=== PATIENT | male | born 1945 | race Caucasian/White ===

== ENCOUNTER 2017-10-23 07:38 | Inpatient (IN) | payer OTHER, MEDICARE ==
[~2017-10-23] VITALS: Ht 180.3 cm; Wt 83.5 kg
[2017-10-23] MEDS ORDERED: IOHEXOL 350 MG/ML 50 ML BTL (for Cath Lab) OTHER ONE (07:39)
[2017-10-23 08:22] LABS: BASOPHIL % 0.4 % (0.0-2.0); EOSINOPHIL # 0.2 TH/MM3 (0-0.4); EOSINOPHIL % 4.3 % (0.0-4.0); HEMATOCRIT 42.9 % (39.0-51.0); HEMOGLOBIN 14.6 GM/DL (13.0-17.0); LYMPH % 23.7 % (9.0-44.0); LYMPHOCYTE # 1.1 TH/MM3 (1.0-4.8); MEAN CELL VOLUME 96.9 FL (80.0-100.0); MEAN CORPUSCULAR HEMOGLOBIN 33.1 PG (27.0-34.0); MEAN CORPUSCULAR HGB CONC 34.1 % (32.0-36.0); MEAN PLATELET VOLUME 8.7 FL (7.0-11.0); MONO % 7.1 % (0.0-8.0); MONOCYTE # 0.3 TH/MM3 (0-0.9); NEUT % 64.5 % (16.0-70.0); PLATELET COUNT 164 TH/MM3 (150-450); RED BLOOD COUNT 4.43 MIL/MM3 (4.50-5.90); RED CELL DISTRIBUTION WIDTH 13.7 % (11.6-17.2); WHITE BLOOD COUNT 4.6 TH/MM3 (4.0-11.0)
[2017-10-23 08:25] VITALS: BP 129/79; PULSE 67; RESP 16; TEMP 97.8; O2SAT 97
[2017-10-23 08:29] LABS: INTERNATIONAL NORMALIZED RATIO 1.1 RATIO; PROTHROMBIN TIME - PATIENT 10.7 SEC (9.8-11.6)
[2017-10-23] MEDS ORDERED: ASPI81CH6 CHEW (08:33)
[2017-10-23] MEDS ORDERED: CLAR10CA3 PO (08:33)
[2017-10-23] MEDS ORDERED: ATOR40TA16 PO (08:33)
[2017-10-23] MEDS ORDERED: AMLO2.5T PO (08:33)
[2017-10-23] MEDS ORDERED: FLUT1SPR5 EACH NARE (08:33)
[2017-10-23] MEDS ORDERED: CENTCHW4 CHEW (08:33)
[2017-10-23 08:40] LABS: BICARBONATE 30.3 MEQ/L (21.0-32.0); CALCIUM 9.1 MG/DL (8.5-10.1); CREATININE 1.2 MG/DL (0.60-1.30)
[2017-10-23] MEDS ORDERED: MIDAZOLAM HCL 2 MG/2 ML VIAL ONE (11:03)
[2017-10-23] MEDS ORDERED: HEPARIN-NS/PF FLUSH BAG 2,000 ML IV FLUSH ONE (11:03)
[2017-10-23] MEDS ORDERED: VERAPAMIL HCL 5 MG/2 ML VIAL ONE (11:04)
[2017-10-23] MEDS ORDERED: HEPARIN SODIUM - IV 10,000 UNITS/10 ML VIAL ONE (11:04)
[2017-10-23] MEDS ORDERED: NITROGLYCERIN INJ 5 ML ONE (11:04)
--- NOTE | 2017-10-23 12:05 | CATHPROC ---
[employer] HIS Report Study Information Study Number Admission Scheduled Start Study Start [id number] Oct 23 2017 7:38AM 10/23/2017 Oct 23 2017 10:56AM [place] [facility] Cardiac Catheterization Admit Source Facility Department Other [facility] - Senior [employer] Designer Physician and Clinical Staff Initial Grey Faustin Director Of Graduate Admissions Piedad Montoya,MARCELLA Director Of Graduate Admissions Johan Contreras,MARCELLA Recorder Verena Crespo,RT(R) (BS) Recorder Brandy Subramanian ,RT(R) Scrub Chloe JohnsonRT(R) Procedures Performed Procedure Location (Site) Vessel Name Coronary Angiograms LCA Left Coronary Coronary Angiograms RCA Right Coronary L Heart Cath Equipment Time Screening Specialist Description Size Mfg Part Number Used/Scraped TRANSDUCER, TRUWAVE [id number] 11:08 MORA FISCHER * Used W/STOCKCOCK *[id number] [id number] *[id number] [id number] *[id number] 11:08 [employer] PACK, CCL CUSTOM * Used *[id number] 11:08 [employer] SUPPORT, ARTERIAL ADULT 16179 *[id number] Used BAND, RADIAL COMPRESSION TR [id number] 11:41 [employer] MEDICAL 24CM Used SHORT 24 *[id number] 11:08 [employer] WIRE, EXCHANGE 260CM 3MMJ 260CM Used *[id number] 11:08 NAMIC MANIFOLD, 4 PORT * Used *[id number] 11:08 [employer]ED OMNIPAQUE, 350 MG, 150ML 150ML [id number] Used [id number] 11:08 RYAN [employer] BLANKET,WARM AIR CCL * Used *[id number] SHEATH, FR6 TRANSRADIAL RM*[id number] 11:08 threadsy FR 6 Used SLENDER 10CM *[id number] History: Allergies Allergy Reaction tomato wheat environmental History: Risk Factors Family History of Hypertension Dyslipidemia Previous NM Previous Heart Failure Premature CAD No Yes No No No Prior Valve Prior PCI Prior CABG Surgery No No No Cerebrovascular Peripheral Artery Chronic Lung On Dialysis Diabetes Diabetes Therapy Disease Disease Disease No No No No Yes Diet History: Stress Tests Stress or Imaging Studies Performed Yes Standard Exercise Stress Stress Test Result Stress Test Ischemia Risk/Extent Test Yes Positive High Stress Echo No Stress Test SPECT No Stress Test CMR No Cardiac CTA Coronary Calcium Score No No History: Other Current Smoker Method No Cigarettes Labs Hgb (g/dl) Hct (%) WBC (l/cumm) Platelets (thousands) 11.60-17.00 35.00-51.00 4.00-11.00 150.00-450.00 14.6 42.9 4.6 164 Glucose (mg/dl) BUN (mg/dl) Creatinine (mg/dl) BUN:Creatinine (1:x) 74.00-106.00 7.00-18.00 0.50-1.30 10.00-20.00 95 17 1.2 14.2 Na (meq/l) K (meq/l) 136.00-145.00 3.50-5.10 141 4.1 INR (PTT:PT) 0.90-1.10 1.1 CPK-MB (ng/ML) 0.50-3.60 Not Drawn Medication Medication Total Dose (Bolus/Oral) Medication Total Dosage/Unit 1% XYLOCAINE 5 mL FENTANYL 25 mcg RADIAL COCKTAIL 5 mL (Bolus) VERSED 0.5 mg Medications (Bolus/Oral) Medication Time Given Dosage/Unit Administered By Reason VERSED 10/23/2017 11:27:37 AM 0.5 mg Johan Contreras 0.5 mg VERSED given in lab by Johan Contreras RN in Left Antecubital via Peripheral IV. Ordered by Grey Davalos FENTANYL 10/23/2017 11:27:45 AM 25 mcg Johan Contreras 25 mcg FENTANYL given in lab by Johan Contreras RN in Left Antecubital via Peripheral IV. Ordered by Grey Gray 1% XYLOCAINE 10/23/2017 11:28:29 AM 5 mL Grey Gray 5 mL 1% XYLOCAINE given in lab by Grey Gray in Right Radial via Subcutaneous. Ordered by Grey Davalos Ntg 200mcg Verapamil 2.5mg Heparin RADIAL COCKTAIL 10/23/2017 11:30:14 AM 5 mL (Bolus) Grey Gray 3000U 5 mL (Bolus) RADIAL COCKTAIL given in lab by Grey Gray via Radial. Using [Solution Name]. O rdered by Grey Gray Reason: Ntg 200mcg Verapamil 2.5mg Heparin 3200U. Medication (Drip) Medication Time Given Dosage/Unit Concentration/Unit Diluent (ml) Solution IV Solutions 10/23/2017 10:57:01 AM 50 mL (IV) NaCl .9 Patient arrived on IV Solutions via Peripheral IV. Pump/Drip Flow using NaCl .9. Initial Case Assessment Cardiovascular HR Rhythm NIBP Chest Pain 75 sr 142/78 0 Edema Present Skin color Skin None Normal Warm Dry Circulatory - Right Pulses Dorsalis Pedis Femoral Radial 2 3 1 Scale (0,1,2,3,4,d) Circulatory - Left Pulses Dorsalis Pedis Femoral Radial 2 3 Scale (0,1,2,3,4,d) Circulatory - Lower Extremities Color Lower Right Color Lower Left Normal Normal Neurological State Oriented to time-place- Alert Moves all extremities person Respiration - General Respiration Rate SpO2 (%) (B/min) 8 100 Final Case Assessment Cardiovascular HR Rhythm NIBP Chest Pain 75 sr 142/78 0 Edema Present Skin color Skin None Normal Warm Dry Circulatory - Right Pulses Dorsalis Pedis Femoral Radial 2 3 1 Scale (0,1,2,3,4,d) Circulatory - Left Pulses Dorsalis Pedis Femoral Radial 2 3 Scale (0,1,2,3,4,d) Circulatory - Lower Extremities Color Lower Right Color Lower Left Normal Normal Neurological State Oriented to time-place- Alert Moves all extremities person Respiration - General Respiration Rate SpO2 (%) (B/min) 8 100 Chronological Log Time Study Chronological Log 10:56:35 Patient arrived via Bed. 10:56:36 Patient Name, D.O.B, / Armband Verified By R.N. 10:56:38 Consent signed by the physician and the patient and verified by the Senior [employer]i [employer] Designer staff. 10:56:39 Pre-op and post- op instructions given; patient acknowledges understanding of instructions. 10:56:40 Verbal Stimulation=2 Physical Stimulation=2 Airway=2 Respiration=2 TOTAL=8. (0=absent, 1=li mited, 2=present) 10:56:42 Presedation assessment performed by Senior Ui Ux Designer RN. 10:56:48 Allens test performed on the right radial and ulnar artery. 10:56:55 Patient has been NPO for More than 6Hrs. 10:56:57 Skin Breakdown none per pt 10:56:59 Patient Warmer Placed on the Table. 10:57:00 Ezio Prominences Protected 10:57:01 A # 20 IV was noted in the Antecubital (left). Grade = 0 10:57:01 Patient arrived on IV Solutions via Peripheral IV. Pump/Drip Flow using NaCl .9. 10:57:02 History and physical on the chart or being dictated. Assessment: Initial Case, HR=75 BPM, Rhythm=sr, SZYZ=562/78 mmhg, Chest Pain=0, Edema=None, Col or=Normal, Skin = Warm, Dry Right Pulses: Lucas Ped=2, Femoral=3, Radial=1 Left Pulses: Lucas Ped=2, Femoral=3 10:57:03 Lower Right Extremities: Color=Normal Lower Left Extremities: Color=Normal Neurological: State=Alert, Ox3, DURÁN Respiration: Resp=8 B/min, QwT8=722 % Vitals capture started with the following parameters, Patient=Adult, Interval=5 min, Initial Pr axjtzv=448 mmHg, 11:02:58 Deflation Rate=5 mmHg, Cuff placed on Unknown 11:03:32 HR=83 bpm, NWEP=588/78 mmhg, SpO2=99.0 %, Pain=0, Samantha=8, Steiner=2 11:08:37 HR=76 bpm, UWPV=158/78 mmhg, ArO0=333.0 %, Resp=17 B/min, Pain=0, Samantha=8, Steiner=2 11:09:20 Right Radial and right groin prepped with 2% chlorhexidine, and draped after a 3 min. waiti ng time. 11:10:56 Reference ECG taken 11:13:27 MD paged 11:14:03 HR=77 bpm, LNKT=507/81 mmhg, JnW6=140.0 %, Resp=12 B/min, Pain=0, Samantha=8, Steiner=2 11:14:32 Pressure channel 1 zeroed. 11:18:33 HR=77 bpm, SGBI=431/82 mmhg, OeQ3=387.0 %, Resp=9 B/min, Pain=0, Samantha=8, Steiner=2 11:23:24 MD arrived. 11:23:34 HR=79 bpm, AAIA=765/94 mmhg, PkR5=777.0 %, Resp=11 B/min, Pain=0, Samantha=8, Steiner=2 Time Out. Correct patient, correct procedure, correct physician, power injector not loaded with contrast with surgical 11::59 team present. Time Out Concurred by MD and individual staff in procedure. 11:27:23 Case Start 11::37 0.5 mg VERSED given in lab by Johan Contreras, RN in Left Antecubital via Peripheral IV. Ord ered by Grey Gray. 25 mcg FENTANYL given in lab by Johan Contreras, RN in Left Antecubital via Peripheral IV. Order ed by Grey Gray 11:27:45 G. 5 mL 1% XYLOCAINE given in lab by Grey Gray in Right Radial via Subcutaneous. Ordered by Isaac 11:29 Grey Garcia 11:28:31 HR=76 bpm, CTBX=836/78 mmhg, SpO2=99.0 %, Resp=11 B/min, Pain=0, Samantha=8, Steiner=2 11:29:20 Access site was right Radial Artery. A SHEATH, FR6 TRANSRADIAL SLENDER 10CM FR 6 was advanced into the Radial (right) using the Perc utaneous 11:29:49 technique. 5 mL (Bolus) RADIAL COCKTAIL given in lab by Grey Gray via Radial. Using [Solution Na me]. Ordered by 11:30:14 Grey Gray. Reason: Ntg 200mcg Verapamil 2.5mg Heparin 3200U. A JR 4.0 INFINITI CATHETER FR 5 was advanced over a wire. OMNIPAQUE, 350 MG, 150ML 150ML was us ed for 11:30:38 injections. Recorded Pressure: LV, HR=87, Condition=Condition 1 11:32:43 (Left Ventricle) LV 105/0/1 Recorded Pressure: LV, Ao, HR=85, Condition=Condition 1 11:32:50 (Left Ventricle) LV 104/-1/0, (Aorta) Ao 89/59/72 11:33:36 HR=83 bpm, NDHP=431/68 mmhg, SpO2=95.0 %, Resp=8 B/min, Pain=0, Samantha=8, Steiner=2 11:35:09 The RCA was injected and visualized at various angles. OMNIPAQUE, 350 MG, 150ML 150ML used . 11:36:39 Catheter was removed A JL 3.5 INFINITI CATHETER FR 5 was advanced over a wire. OMNIPAQUE, 350 MG, 150ML 150ML was us ed for 11:36:41 injections. 11:38:31 HR=84 bpm, RDIP=313/69 mmhg, SpO2=96.0 %, Resp=10 B/min, Pain=0, Samantha=8, Steiner=2 11:38:48 The LCA was injected and visualized at various angles. OMNIPAQUE, 350 MG, 150ML 150ML used . 11:39:29 Catheter was removed 11:43:34 HR=84 bpm, IQHG=453/65 mmhg, SpO2=98.0 %, Resp=11 B/min, Pain=0, Samantha=8, Steiner=2 11:46:49 Case End Assessment: Final Case, HR=75 BPM, Rhythm=sr, YMKF=233/78 mmhg, Chest Pain=0, Edema=None, [place] r=Normal, Skin = Warm, Dry Right Pulses: Lucas Ped=2, Femoral=3, Radial=1 Left Pulses: Lucas Ped=2, Femoral=3 11:47:04 Lower Right Extremities: Color=Normal Lower Left Extremities: Color=Normal Neurological: State=Alert, Ox3, DURÁN Respiration: Resp=8 B/min, ZbO2=456 % 11:47:20 Catheter(s) removed without difficulty Radial Compression Device Used. 11 mLs of air placed in BAND, RADIAL COMPRESSION TR SHORT 24 2 4CM. Affected 11:47:42 hand 100 % O2 saturation. 11:47:55 No case complications noted. 11:47:56 Cine recording checked. 11:47:59 Bedside Report will be given. 11:48:05 A Left Heart Cath was performed. 11:48:33 HR=80 bpm, PGWE=126/75 mmhg, Resp=13 B/min, Pain=0, Samantha=8, Steiner=2 11:53:16 Vitals capture stopped. 11:56:47 Patient moved to stretcher End Study - Contrast Media Used In Study Contrast Total Opened (mL) Total Used (mL) Total Wasted (mL) Omnipaque 50 50 0 End Study - Maximum Contrast Load Max Contrast Load (mL) 330.5 End Study - Radiation Exposure Fluoro Time (minutes) 2.8 End Study - Sheaths Sheaths Pulled By Sheath Hold Time (min) Chloe Johnson End Study - Patient Disposition Complications Transferred To Interventional Outcome No Senior [employer]i [employer] Designer Holding No attempt made
[2017-10-23] MEDS ORDERED: INSULIN REGULAR (IV INFUSION) 100 UNITS in SODIUM CHLORIDE 0.9% INJ 99 ML IV PRN (13:00)
[2017-10-23] MEDS ORDERED: SODIUM CHLORIDE 0.9% FLUSH 10 ML FLUSH IV FLUSH PRN (13:00)
[2017-10-23] MEDS ORDERED: METOPROLOL TARTRATE 25 MG TAB PO SCH (13:00)
[2017-10-23] MEDS ORDERED: CHLORHEXIDINE GLUCONATE 4% SOLN 120 ML BTL TOPICAL SCH (13:00)
[2017-10-23] MEDS ORDERED: PAPAVERINE INJ 60 MG, NITROGLYCERIN INJ 100 MCG, DILTIAZEM INJ 100 MG in SODIUM CHLORID... IRRIGATION SCH (13:00)
[2017-10-23] MEDS ORDERED: DEXTROSE 50% IN WATER 50 ML VIAL(D50) IV PUSH PRN (13:00)
[2017-10-23] MEDS ORDERED: CEFAZOLIN INJ 500 MG in SODIUM CHLORIDE 0.9% IRR BTL 500 ML IRRIGATION SCH (13:00)
[2017-10-23] MEDS ORDERED: ceFAZolin 2 GM PREMIX 50 ML IV SCH (13:30)
[2017-10-23] MEDS ORDERED: CEFAZOLIN INJ 2,000 MG in SODIUM CHLORIDE 0.9% INJ 100 ML IV SCH (13:45)
[2017-10-23] MEDS ORDERED: PILL SPLITTER OTHER PRN (13:45)
--- NOTE | 2017-10-23 14:39 | RADRPT ---
EXAM DATE/TIME: 10/23/2017 13:58 [facility] COMPARISON: No previous studies available for comparison. INDICATIONS : Preop cardiac surgery. MEDICAL HISTORY : Carcinoma, basal cell. Chronic kidney disease. Pre diabetes. Chest pain. SURGICAL HISTORY : Cardiac cath. ENCOUNTER: Initial ACUITY: 1 day PAIN SCORE: 0/10 LOCATION: Bilateral leg. GREATER SAPHENOUS VEIN THIGH: PROXIMAL: Right 7 mm Left 4 mm MID: Right 2 mm Left 4 mm DISTAL: Right 4 mm Left 4 mm CALF: PROXIMAL: Right 3 mm Left 4 mm MID: Right 2 mm Left 3 mm DISTAL: Right 3 mm Left 3 mm FINDINGS: The venous system of the lower extremities are patent by color Doppler imaging. Measurements of the leg veins (in mm) are listed above. CONCLUSION: Venous mapping study as described. Venkat Roberts MD on October 23, 2017 at 14:36 Board Certified Radiologist. This report was verified electronically.
--- NOTE | 2017-10-23 14:40 | RADRPT ---
EXAM DATE/TIME: 10/23/2017 13:52 [facility] COMPARISON: No previous studies available for comparison. INDICATIONS : Preop cardiac surgery. MEDICAL HISTORY : Carcinoma, basal cell. Chronic kidney disease. Pre diabetes. Chest pain. SURGICAL HISTORY : Cardiac cath. ENCOUNTER: Initial ACUITY: 1 day PAIN SCORE: 0/10 LOCATION: Bilateral leg. TECHNIQUE: Venous ultrasound of the left and right leg was performed from the inguinal ligament to the proximal calf. Real-time, color Doppler and spectral tracing, compression and augmentation techniques were us ed. FINDINGS: RIGHT LEG: There is normal compressibility of the deep venous system from the inguinal region to the proximal ca lf. No echogenic clot is seen in the lumen of the common femoral, femoral, popliteal, and posterior tibial veins. There is a normal response of the venous system to proximal and distal augmentation an d respiration. LEFT LEG: There is normal compressibility of the deep venous system from the inguinal region to the proximal ca lf. No echogenic clot is seen in the lumen of the common femoral, femoral, popliteal, and posterior tibial veins. There is a normal response of the venous system to proximal and distal augmentation an d respiration. CONCLUSION: Negative exam with no evidence of deep venous thrombosis. Venkat Roberts MD on October 23, 2017 at 14:37 Board Certified Radiologist. This report was verified electronically.
[2017-10-23 15:00] VITALS: BP 135/88; PULSE 69; PULSE 70; RESP 18; TEMP 98.6; O2SAT 97
--- NOTE | 2017-10-23 15:30 | RADRPT ---
EXAM DATE/TIME: 10/23/2017 13:15 [facility] COMPARISON: No previous studies available for comparison. INDICATIONS : Preop cardiac surgery. MEDICAL HISTORY : Carcinoma, basal cell. Chronic kidney disease. Pre diabetes. Chest pain. SURGICAL HISTORY : Cardiac cath. ENCOUNTER: Initial ACUITY: 1 day PAIN SCORE: 0/10 LOCATION: Bilateral neck PEAK SYSTOLIC VELOCITIES (cm/sec): ICA/CCA RATIO: Right: 0.7 Left: 0.7 ICA: Right: 91 Left: 93 CCA: Right: 135 Left: 127 ECA: Right: 108 Left: 120 VERTEBRAL: Right: 31 antegrade Left: 54 antegrade Elevated flow velocities and ICA/CCA ratios have been found to correlate with increased degrees of vessel stenosis, calculated as percentage of diameter relative to a normal segment of distal ICA/CCA FINDINGS: RIGHT CAROTID: No significant stenosis is visualized. The waveforms are within normal limits. LEFT CAROTID: No significant stenosis is visualized. The waveforms are within normal limits. VERTEBRAL ARTERIES: Antegrade flow is seen in both vertebral arteries. MISCELLANEOUS: None. CONCLUSION: 1. Normal exam. 2. No evidence of significant atherosclerotic vascular disease or hemodynamically significant stenosi s. 3. Antegrade flow both vertebral arteries. Cristobal Mckeon MD on October 23, 2017 at 15:26 Board Certified Radiologist. This report was verified electronically.
--- NOTE | 2017-10-23 15:43 | MB ---
cc: Tiffani Corbett MD DATE: 10/23/2017 HISTORY OF PRESENT ILLNESS: A 72-year-old male patient of Dr. Luke Augustine, Dr. Sandra Busby, who had been having some chest pain on and off for the last year and a half he recalled, but he described it to Dr. Busby as discomfort for the last couple of months, lasting a couple of hours. He said it was hard to describe, but he has been noticing that he has had some intolerance to walking up a flight of stairs. He walks up a flight of stairs 12 flights to get the mail and has to stop after the seventh to catch his breath, which is not normal to him. Denies having any nausea, vomiting, palpitations. No edema. He underwent elective exercise stress test; however, there was a [address] depression that was noted making him a high risk score. So he underwent elective cardiac catheterization today by Dr. Gray, which showed left main disease of 10%. The proximal LAD had 95%. The mid distal LAD 99%. The diagonal had 40%. The circumflex 20, the OM 60 and the RCA 20%. We were consulted to evaluate for coronary artery bypass grafting since the patient has significant LAD disease, the decision was to keep the patient in the hospital to be evaluated for surgery sooner than later. PAST MEDICAL HISTORY: Includes chronic kidney disease, stage II, history of kidney stones, colon polyps, prediabetes, hyperlipidemia. PAST SURGICAL HISTORY: Include basal cell carcinoma removed from his left ear and right ear. He has had some squamous cell cancer removed. He had a thymectomy in 1984, vasectomy, prostate biopsy, lithotripsy laminectomy, left knee arthroscopic surgery, colonoscopy. ALLERGIES: THE PATIENT HAS ALLERGIES TO ENVIRONMENTAL: TOMATO, WHEAT. HOME MEDICATIONS: Include: amlodipine 2.5 daily, atorvastatin 40, aspirin 81, Flonase, Claritin, multivitamin. FAMILY HISTORY: Mother at 96 from old age. Father from cancer at age 62. 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 Exercises normally on a regular basis, but unable to do so recently. No alcohol or ETOH. REVIEW OF SYSTEMS: GENERAL: No night sweats, fever, heat and cold intolerance. SKIN: No psoriasis, itching or hives. HEENT: No blurred vision, hearing loss. RESPIRATORY: No cough, shortness of breath. CARDIOVASCULAR: As above in the HPI. GASTROINTESTINAL: No diarrhea or vomiting. GENITOURINARY: No burning, frequency, urgency. CENTRAL NERVOUS SYSTEM: No history of TIA, CVA or seizure disorder. ENDOCRINOLOGY: No diabetes and/or hypothyroidism. PHYSICAL EXAMINATION: VITAL SIGNS: Blood pressure 130/70, heart rate is 68, afebrile, room air saturation 97 percent. GENERAL: Awake, alert, in no acute distress. HEENT: Head is normocephalic, atraumatic. Pupils equal and reactive. Oral mucosa pink, moist. NECK: Supple. No JVD. HEART: Sounds S1, S2. Regular rate and rhythm. No audible rubs, murmurs, or gallops. LUNGS: Clear to auscultation. No wheezes, rales or rhonchi. ABDOMEN: Soft, nontender. No masses or organomegaly. EXTREMITIES: No cyanosis, clubbing, or edema. LABORATORY DATA: Shows hemoglobin 14, hematocrit of 42. White cell count of 4.6, platelet count of 164. Sodium 141, potassium 4.1, BUN is 17, creatinine 1.20, glucose 95. INR 1.1. RADIOLOGICAL EXAMS: Still pending to include 2-D echo, CT chest secondary to his prior sternotomy, other lab work and leg vein mapping, carotid ultrasound. ASSESSMENT AND PLAN: The cardiac films will be evaluated by Dr. Tiffani Corbett. Procedures, alternatives and risks will be discussed with the patient. Plan would be for coronary artery bypass grafting from 2-3 and timing as per Dr. Corbett. STS data will be completed once we get his ejection fraction from the echocardiogram. Dictated by DAVE Mo MD TISHA Higgins/ОЛЕГ/mandy , 01:04 PM , 01:38 PM
[2017-10-23] MEDS: HEPARIN-D5W 25,000 U/250 ML 250 ML IV PRN (16:22)
--- NOTE | 2017-10-23 16:34 | HHI.HP ---
[facility] Luke Augustine MD Admission Diagnosis Diagnoses: Chief Complaint: Intermittent chest pain. Travel History International Travel<30 Days: No Contact w/Intl Traveler <30 Da: No History of Present Illness 72-year-old male who presented to the hospital for elective heart catheterization and was found to have multivessel disease. Patient reports over the past few months, he has been having intermittent, vague chest pain. He is normally very active and is normally able to climb one flight of stairs but noticed lately after 7 flight of stairs he gets really short of breath. 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 He came in for heart catheterization disease. It was recommended the patient be admitted to the cardiovascular surgery consult and intervention. Patient is seen in his room, currently denies chest pain or shortness of breath. Review of Systems Cardiovascular: COMPLAINS OF: Chest pain, Dyspnea on Exertion Gastrointestinal: DENIES: Nausea Except as stated in HPI: all other systems reviewed are Neg Past Family Social History Past Medical History Prediabetes History of Kidney stones Hyperlipidemia Past Surgical History Thymectomy in the 80s Lithotripsy Prostate biopsy Vasectomy Reported Medications Reported Meds & Active Scripts Active Reported Amlodipine (Amlodipine Besylate) 2.5 Mg Tab 2.5 Mg PO DAILY Atorvastatin (Atorvastatin Calcium) 40 Mg Tab 40 Mg PO HS Aspirin Low Dose (Aspirin) 81 Mg Chew 81 Mg CHEW DAILY Flonase Nasal [place] (Fluticasone Nasal [place]) 50 Mcg/Act [place] 50 Mcg EACH NARE BID Claritin (Loratadine) 10 Mg Cap 10 Mg PO DAILY Centrum (Multiple Vitamins W/ Minerals) 1 Chew 1 Tab CHEW DAILY Allergies: Coded Allergies: tomato (Verified Allergy, Unknown, 10/23/17) wheat (Verified Allergy, Unknown, 10/23/17) Uncoded Allergies: environmental (Allergy, Mild, 10/23/17) Family History Father from cancer Social History Lives with his . No history of tobacco, alcohol, or drug use. Physical Exam Vital Signs Vital Signs Date Time Temp Pulse Resp B/P (MAP) Pulse Ox O2 Delivery O2 Flow Rate FiO2 10/23/17 12:02 97 Room Air 10/23/17 08:25 97.8 67 16 129/79 96 97 Physical Exam GENERAL: This is a well-nourished, well-developed patient, in no apparent distress. SKIN: No rashes, ecchymoses or lesions. Cool and dry. HEAD: Atraumatic. Normocephalic. No temporal or scalp tenderness. EYES: Pupils equal round and reactive. Extraocular motions intact. No scleral icterus. No injection or drainage. ENT: Nose without bleeding, purulent drainage or septal hematoma. Throat without erythema, tonsillar hypertrophy or exudate. Uvula midline. Airway patent. NECK: Trachea midline. No JVD or lymphadenopathy. Supple, nontender, no meningeal signs. CARDIOVASCULAR: Regular rate and rhythm without murmurs, gallops, or rubs. RESPIRATORY: Clear to auscultation. Breath sounds equal bilaterally. No wheezes , rales, or rhonchi. GASTROINTESTINAL: Abdomen soft, non-tender, nondistended. No hepato-splenomegaly , or palpable masses. No guarding. MUSCULOSKELETAL: Extremities without clubbing, cyanosis, or edema. No joint tenderness, effusion, or edema noted. No calf tenderness. Negative Homans sign bilaterally. NEUROLOGICAL: Awake and alert. Cranial nerves II through XII intact. Motor and sensory grossly within normal limits. Five out of 5 muscle strength in all muscle groups. Normal speech. Laboratory Laboratory Tests Test 10/23/17 08:10 White Blood Count 4.6 Red Blood Count 4.43 Hemoglobin 14.6 Hematocrit 42.9 Mean Corpuscular Volume 96.9 Mean Corpuscular Hemoglobin 33.1 Mean Corpuscular Hemoglobin Concent 34.1 Red Cell Distribution Width 13.7 Platelet Count 164 Mean Platelet Volume 8.7 Neutrophils (%) (Auto) 64.5 Lymphocytes (%) (Auto) 23.7 Monocytes (%) (Auto) 7.1 Eosinophils (%) (Auto) 4.3 Basophils (%) (Auto) 0.4 Neutrophils # (Auto) 3.0 Lymphocytes # (Auto) 1.1 Monocytes # (Auto) 0.3 Eosinophils # (Auto) 0.2 Basophils # (Auto) 0.0 CBC Comment DIFF FINAL Differential Comment Prothrombin Time 10.7 Prothromb Time International Ratio 1.1 Activated Partial Thromboplast Time 25.1 Blood Urea Nitrogen 17 Creatinine 1.20 Random Glucose 95 Calcium Level 9.1 Sodium Level 141 Potassium Level 4.1 Chloride Level 103 Carbon Dioxide Level 30.3 Anion Gap 8 Estimat Glomerular Filtration Rate 59 Result Diagram: 10/23/1780910/23/1710 Caprini VTE Risk Assessment Caprini VTE Risk Assessment: Mod/High Risk (score >= 2) Caprini Risk Assessment Model Point Value = 1 Point Value = 2 Point Value = 3 Point Value = 5 Age 41-60 Minor surgery BMI > 25 kg/m2 Swollen legs Varicose veins or History of unexplained or recurrent spontaneous Oral contraceptives or hormone replacement Sepsis (< 1 month) Serious lung disease, including pneumonia (< 1 month) Abnormal pulmonary function Acute myocardial infarction Congestive heart failure (< 1 month) History of inflammatory bowel disease Medical patient at bed rest Age 61-74 Arthroscopic surgery Major open surgery (> 45 min) Laparoscopic surgery (> 45 min) Malignancy Confined to bed (> 72 hours) Immobilizing plaster cast Central venous access Age >= 75 History of VTE Family history of VTE Factor V Leiden Prothrombin [id number] Lupus anticoagulant Anticardiolipin antibodies Elevated serum homocysteine Heparin-induced thrombocytopenia Other congenital or acquired thrombophilia Stroke (< 1 month) Elective arthroplasty Hip, pelvis, or leg fracture Acute spinal cord injury (< 1 month) Prophylaxis Regimen Total Risk Factor Score Risk Level Prophylaxis Regimen 0-1 Low Early ambulation 2 Moderate Order ONE of the following: *Sequential Compression Device (SCD) *Heparin 5000 units SQ BID 3-4 Higher Order ONE of the following medications: *Heparin 5000 units SQ TID *Enoxaparin/Lovenox 40 mg SQ daily (WT < 150 kg, CrCl > 30 mL/min) *Enoxaparin/Lovenox 30 mg SQ daily (WT < 150 kg, CrCl > 10-29 mL/min) *Enoxaparin/Lovenox 30 mg SQ BID (WT < 150 kg, CrCl > 30 mL/min) AND/OR *Sequential Compression Device (SCD) 5 or more Highest Order ONE of the following medications: *Heparin 5000 units SQ TID (Preferred with Epidurals) *Enoxaparin/Lovenox 40 mg SQ daily (WT < 150 kg, CrCl > 30 mL/min) *Enoxaparin/Lovenox 30 mg SQ daily (WT < 150 kg, CrCl > 10-29 mL/min) *Enoxaparin/Lovenox 30 mg SQ BID (WT < 150 kg, CrCl > 30 mL/min) AND *Sequential Compression Device (SCD) Assessment and Plan Problem List: (1) Multi-vessel coronary artery stenosis ICD Code: I25.10 - Atherosclerotic heart disease of [place] coronary artery without angina pectoris Plan: Patient is status post heart catheterization with revealed multivessel disease including stenosis of the LAD, Circumflex, RCA - CT surgery consulted for evaluation for CABG - Preop workup ongoing. - Patient reports he was put on Amlodipine a few weeks ago for vasodilation. He denies any history of HTN. - Continue Aspirin and Lipitor (2) Dyspnea on exertion ICD Code: R06.09 - Other forms of dyspnea Plan: Related to CAD. See above. Discussed Condition With Patient's and RN at bedside. Physician Certification 2 Midnight Certification Type: Admission for Inpatient Services Order for Inpatient Services The services are ordered in accordance with Medicare regulations or non- Medicare payer requirements, as applicable. In the case of services not specified as inpatient-only, they are appropriately provided as inpatient services in accordance with the 2-midnight benchmark. Estimated LOS (days): 4 days is the estimated time the patient will need to remain in the hospital, assuming treatment plan goals are met and no additional complications. Post-Hospital Plan: Not yet determined Kwadwo Villalta MD Oct 23, 2017 16:34
--- NOTE | 2017-10-23 17:42 | RADRPT ---
EXAM DATE/TIME: 10/23/2017 14:55 [place] COMPARISON: No previous studies available for comparison. INDICATIONS : Evaluate for pneumonia, pneumothorax, or communicable disease. Pre op CABG. MEDICAL HISTORY : None. SURGICAL HISTORY : Thymus gland removed. ENCOUNTER: Initial ACUITY: 1 day PAIN SCORE: 0/10 LOCATION: Bilateral chest FINDINGS: PA and lateral views of the chest demonstrate the lungs to be symmetrically aerated without evidence of mass, infiltrate or effusion. The cardiomediastinal contours are unremarkable. Mild degenerative changes present in the spine. Sternotomy wires are noted.. CONCLUSION: No acute disease. Sridhar Rao MD on October 23, 2017 at 17:39 Board Certified Radiologist. This report was verified electronically.
--- NOTE | 2017-10-23 17:45 | ECHRPT ---
Indication: CAD CONCLUSIONS The left ventricular systolic function is low normal with an estimated ejection fraction in the rang e of 50- 55%. Wall thickness is normal. Normal left ventricular size. BP: 129 / 79 HR: 67 Rhythm: Sinus MEASUREMENTS (Male / Female) Normal Values Technical Quality:Technically difficult study 2D ECHO LV Diastolic Diameter PLAX 4.6 cm 4.2 - 5.9 / 3.9 - 5.3 cm LV Systolic Diameter PLAX 3.5 cm IVS Diastolic Thickness 1.0 cm 0.6 - 1.0 / 0.6 - 0.9 cm LVPW Diastolic Thickness 1.0 cm 0.6 - 1.0 / 0.6 - 0.9 cm LV Relative Wall Thickness 0.4 RV Internal Dim ED PLAX 3.2 cm LVOT Diameter 2.2 cm LA Systolic Diameter LX 2.9 cm 3.0 - 4.0 / 2.7 - 3.8 cm M-MODE Aortic Root Diameter MM 3.1 cm LA Systolic Diameter MM 3.9 cm LA Ao Ratio MM 1.3 AV Cusp Separation MM 1.8 cm DOPPLER AV Peak Velocity 159.0 cm/s AV Peak Gradient 10.1 mmHg LVOT Peak Velocity 128.0 cm/s LVOT Peak Gradient 6.6 mmHg AV Area Cont Eq pk 3.1 cm MV Area PHT 4.2 cm Mitral E Point Velocity 53.2 cm/s Mitral A Point Velocity 63.2 cm/s Mitral E to A Ratio 0.8 LV E' Lateral Velocity 9.3 cm/s Mitral E to LV E' Lateral Ratio 5.7 LV E' Septal Velocity 6.8 cm/s Mitral E to LV E' Septal Ratio 7.8 FINDINGS LEFT VENTRICLE The left ventricular systolic function is low normal with an estimated ejection fraction in the rang e of 50- 55%. Wall thickness is normal. Normal left ventricular size. RIGHT VENTRICLE Normal right ventricular size and systolic function. LEFT ATRIUM The left atrial size is normal. RIGHT ATRIUM The right atrial size is normal. ATRIAL SEPTUM Normal atrial septal thickness without atrial level shunting by limited color doppler interrogation. AORTA The aortic root and proximal ascending aorta are normal in size on limited imaging. MITRAL VALVE Structurally normal mitral valve. No mitral valve stenosis or regurgitation. AORTIC VALVE Trileaflet aortic valve. No aortic valve stenosis or regurgitation. TRICUSPID VALVE Structurally normal tricuspid valve. No tricuspid valve stenosis or regurgitation. PULMONARY VALVE The pulmonary valve is not well visualized. VESSELS The inferior vena cava is normal in size. PERICARDIUM No pericardial effusion. Jonnie Johnson MD, FACC (Electronically Signed) Final Date:23 October 2017 17:44
[2017-10-23 17:57] LABS: BILIRUBIN, URINE NEG (NEG); BLOOD, URINE NEG (NEG); GLUCOSE,URINE NEG (NEG); KETONE, URINE NEG (NEG); NITRITE,URINE NEG (NEG); PH, URINE 7.5 (5.0-8.5); URINE COLOR YELLOW (YELLW/STRAW); URINE LEUKOCYTE ESTERASE NEG (NEG)
[2017-10-23] MEDS ORDERED: HEPARIN SODIUM - IV 10,000 UNITS/10 ML VIAL IV PUSH PRN ×2 (18:30)
[2017-10-23 19:00] VITALS: BP 103/63; PULSE 68; PULSE 80; RESP 12; TEMP 97.5; O2SAT 95
[2017-10-23] MEDS: SODIUM CHLORIDE 0.9% FLUSH 10 ML FLUSH IV FLUSH SCH (21:00)
[2017-10-23] MEDS: ATORVASTATIN 40 MG TAB PO SCH (21:00)
[2017-10-23 23:00] VITALS: BP 118/69; PULSE 66; PULSE 74; RESP 16; TEMP 97.8; O2SAT 97
[2017-10-24] VITALS (20 sets, daily range): BP systolic 105–118; BP diastolic 57–69; PULSE 57–87; RESP 16–20; TEMP 97.8–98.7; O2SAT 97–100
--- NOTE | 2017-10-24 00:09 | EKG ---
Date Performed: 10/23/2017 Time Performed: 08:20:50 PTAGE: 72 years EKG: Sinus rhythm with 1st degree A-V block. Abnormal ECG NO PREVIOUS TRACING DOCTOR: Nani Irizarry Interpretating Date/Time 10/24/2017 00:01:42
--- NOTE | 2017-10-24 00:44 | MA ---
cc: Grey Gray DO DATE: 10/23/2017 DATE OF PROCEDURE: Is 10/23/2017. PROCEDURE: Left heart catheterization, coronary angiogram, moderate sedation, 20 minutes. PREPROCEDURE DIAGNOSIS: High-risk stress test, chest pain/unstable angina. POSTPROCEDURE DIAGNOSIS: Multivessel coronary artery disease with high-risk features. MEDICATIONS: Versed 0.5 mg, fentanyl 25 micrograms, heparin 3200 units, nitro 200 micrograms, verapamil 2.5 mg. Contrast used 50 mL Fluoroscopy 2.8 minutes. Moderate sedation 20 minutes. ESTIMATED BLOOD LOSS: Was 10 milliliters. PROCEDURAL SUMMARY: Williams Dunne is a pleasant 72-year-old male who sees my partner, Dr. Busby, in the office and underwent exercise stress testing on which he had a high Tabor treadmill score. Because of this, he was recommended cardiac catheterization. Risks, benefits and alternatives were explained to him and he consented to such. He was brought to the lab and prepped in the usual sterile fashion. The right radial artery was accessed using a modified Seldinger technique and placement of a 5/6 [place] slender sheath. This was easily aspirated and flushed. A JR4 was advanced over a J-wire to the ascending aorta and across the aortic valve for measurement of left ventricular pressure. This was pulled back across the aortic valve showing no significant gradient of aortic stenosis. JR4 was then used for selective angiography of the right coronary artery system. This was exchanged out for a JL3.5, which was used for selective angiography of the left coronary artery system. JL3.5 was removed over a J-wire. The radial band was placed over the arteriotomy site for hemostasis. 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 FINDINGS: Left main: Normal size vessel with adequate reflux and no significant disease. It bifurcates into an LAD and circumflex. LAD: 95% ostial stenosis. Distally, the vessel has multiple 95% lesions. It gives off one major diagonal, which has 40% disease in it. There are collaterals from the right coronary artery system, which supply the distal LAD. Left circumflex: Normal size vessel with mild luminal irregularities throughout the proximal portion. In the midportion of the major obtuse marginal, there is a 60% lesion. RCA: Normal size vessel with mild luminal irregularities throughout. Distally, it supplies collaterals to the distal LAD. LVEDP 5. IMPRESSION: 1. Unstable angina, [place] Anginal Score 3. 2. Coronary artery disease as above with high risk features. 3. High-risk Tabor treadmill score. RECOMMENDATIONS: 1. Mr. Dunne appears to have significant ostial LAD disease with minimal flow through and overall concerning. 2. Because of the ostial component of the LAD, I would be unable to stent it without impeding on the left circumflex, which is overall a large vessel. I feel that his best option is to consider coronary artery bypass grafting. 3. CT Surgery will be consulted for consideration of 2-vessel bypass of the LAD and obtuse marginal. 4. Because of his significant symptoms, as well as significance of his coronary artery disease, I feel that he should be admitted inpatient and placed on a heparin drip until decisions can be made on when surgery can be done. 5. We will check a 2D echo to look at his overall left ventricular function, cardiac structure and possible valvulopathies. 6. Further recommendations will be made based on the hospital course. Thank you for allowing me to see Williams Dunne. If there are any questions, please do not hesitate to call. DO CHINO Villaseñor/LILLY , 12:06 AM , 12:43 AM
[2017-10-24 05:12] LABS: AUTOMATED NEUTROPHIL # 3.7 TH/MM3 (1.8-7.7); BASOPHIL % 0.5 % (0.0-2.0); EOSINOPHIL # 0.3 TH/MM3 (0-0.4); EOSINOPHIL % 4.3 % (0.0-4.0); HEMATOCRIT 39.1 % (39.0-51.0); HEMOGLOBIN 13.2 GM/DL (13.0-17.0); LYMPH % 25.3 % (9.0-44.0); LYMPHOCYTE # 1.5 TH/MM3 (1.0-4.8); MEAN CELL VOLUME 95.7 FL (80.0-100.0); MEAN CORPUSCULAR HEMOGLOBIN 32.3 PG (27.0-34.0); MEAN CORPUSCULAR HGB CONC 33.7 % (32.0-36.0); MEAN PLATELET VOLUME 9.5 FL (7.0-11.0); MONO % 7.7 % (0.0-8.0); MONOCYTE # 0.5 TH/MM3 (0-0.9); NEUT % 62.2 % (16.0-70.0); PLATELET COUNT 143 TH/MM3 (150-450); RED BLOOD COUNT 4.09 MIL/MM3 (4.50-5.90); RED CELL DISTRIBUTION WIDTH 13.5 % (11.6-17.2)
[2017-10-24 05:37] LABS: ALBUMIN 3.4 GM/DL (3.4-5.0); AST (GOT) 12 U/L (15-37); BICARBONATE 29.9 MEQ/L (21.0-32.0); BLOOD UREA NITROGEN 22 MG/DL (7-18); CALCIUM 8.5 MG/DL (8.5-10.1); CHLORIDE 105 MEQ/L (98-107); CREATININE 0.98 MG/DL (0.60-1.30); GLOMERULAR FILTRATION RATE 75 ML/MIN (>89); GLUCOSE,RANDOM 110 MG/DL (74-106); SODIUM (NA) 143 MEQ/L (136-145)
[2017-10-24 05:39] LABS: ALT (GPT) 21 U/L (12-78)
[2017-10-24 05:41] LABS: ALKALINE PHOSPHATASE 74 U/L (45-117); TOTAL BILIRUBIN ADULT 0.8 MG/DL (0.2-1.0); TOTAL PROTEIN 6.4 GM/DL (6.4-8.2)
[2017-10-24] MEDS: amLODIPine BESYLATE 5 MG TAB PO SCH (08:50)
[2017-10-24] MEDS: ASPIRIN 81 MG CHEW TAB CHEW SCH (08:50)
[2017-10-24] MEDS: SODIUM CHLORIDE 0.9% FLUSH 10 ML FLUSH IV FLUSH SCH ×2 (08:51→20:56)
[2017-10-24] MEDS: NS 1000P @30 MLS/HR (KVO) IV SCH (08:52)
--- NOTE | 2017-10-24 09:30 | PD.CAR.PN ---
CVT Progress Note Subjective/Hospital Course: 72-year-old male patient of Dr. Luke Augustine, Dr. Sandra Busby, who had been having some chest pain on and off for the last year and a half he recalled , but he described it to Dr. Busby as discomfort for the last couple of months, lasting a couple of hours. He said it was hard to describe, but he has been noticing that he has had some intolerance to walking up a flight of stairs. He walks up a flight of stairs 12 flights to get the mail and has to stop after the seventh to catch his breath, which is not normal to him. Denies having any nausea, vomiting, palpitations. No edema. He underwent elective exercise stress test; however, there was a [address] depression that was noted making him a high risk score. So he underwent elective cardiac catheterization today by Dr. Gray, which showed left main disease of 10%. The proximal LAD had 95%. The mid distal LAD 99%. The diagonal had 40%. The circumflex 20, the OM 60 and the RCA 20%. We were consulted to evaluate for coronary artery bypass grafting since the patient has significant LAD disease, PAST MEDICAL HISTORY: Includes chronic kidney disease, stage II, history of kidney stones, colon polyps, prediabetes, hyperlipidemia. ECHO: no valve disease , EF 50% 10/24 on heparin gtt for surgery in am , carotid ok FEV1 3.08 Objective: GENERAL: SKIN: Warm and dry. HEAD: Normocephalic. EYES: No scleral icterus. No injection or drainage. NECK: Supple, trachea midline. No JVD or lymphadenopathy. CARDIOVASCULAR: Regular rate and rhythm without murmurs, gallops, or rubs. RESPIRATORY: Breath sounds equal bilaterally. No accessory muscle use. GASTROINTESTINAL: Abdomen soft, non-tender, nondistended. MUSCULOSKELETAL: No cyanosis, or edema. BACK: Nontender without obvious deformity. No CVA tenderness. Vital Signs Date Time Temp Pulse Resp B/P (MAP) Pulse Ox O2 Delivery O2 Flow Rate FiO2 10/24/17 09:00 67 10/24/17 08:00 69 10/24/17 07:23 97.8 66 18 117/68 (84) 100 10/24/17 07:00 68 10/24/17 03:00 57 10/24/17 03:00 98.4 74 16 118/69 (85) 97 10/23/17 23:00 97.8 74 16 118/69 (85) 97 10/23/17 23:00 66 10/23/17 19:00 80 10/23/17 19:00 97.5 68 12 103/63 (76) 95 10/23/17 15:00 98.6 69 18 135/88 (104) 97 10/23/17 15:00 70 10/23/17 12:02 97 Room Air Labs: Laboratory Tests Test 10/24/17 00:47 10/24/17 02:59 Activated Partial Thromboplast Time 39.0 SEC (24.3-30.1) White Blood Count 6.0 TH/MM3 (4.0-11.0) Red Blood Count 4.09 MIL/MM3 (4.50-5.90) Hemoglobin 13.2 GM/DL (13.0-17.0) Hematocrit 39.1 % (39.0-51.0) Mean Corpuscular Volume 95.7 FL (80.0-100.0) Mean Corpuscular Hemoglobin 32.3 PG (27.0-34.0) Mean Corpuscular Hemoglobin Concent 33.7 % (32.0-36.0) Red Cell Distribution Width 13.5 % (11.6-17.2) Platelet Count 143 TH/MM3 (150-450) Mean Platelet Volume 9.5 FL (7.0-11.0) Neutrophils (%) (Auto) 62.2 % (16.0-70.0) Lymphocytes (%) (Auto) 25.3 % (9.0-44.0) Monocytes (%) (Auto) 7.7 % (0.0-8.0) Eosinophils (%) (Auto) 4.3 % (0.0-4.0) Basophils (%) (Auto) 0.5 % (0.0-2.0) Neutrophils # (Auto) 3.7 TH/MM3 (1.8-7.7) Lymphocytes # (Auto) 1.5 TH/MM3 (1.0-4.8) Monocytes # (Auto) 0.5 TH/MM3 (0-0.9) Eosinophils # (Auto) 0.3 TH/MM3 (0-0.4) Basophils # (Auto) 0.0 TH/MM3 (0-0.2) CBC Comment DIFF FINAL Differential Comment Blood Urea Nitrogen 22 MG/DL (7-18) Creatinine 0.98 MG/DL (0.60-1.30) Random Glucose 110 MG/DL (74-106) Total Protein 6.4 GM/DL (6.4-8.2) Albumin 3.4 GM/DL (3.4-5.0) Calcium Level 8.5 MG/DL (8.5-10.1) Alkaline Phosphatase 74 U/L (45-117) Aspartate Amino Transf (AST/SGOT) 12 U/L (15-37) Alanine Aminotransferase (ALT/SGPT) 21 U/L (12-78) Total Bilirubin 0.8 MG/DL (0.2-1.0) Sodium Level 143 MEQ/L (136-145) Potassium Level 3.8 MEQ/L (3.5-5.1) Chloride Level 105 MEQ/L (98-107) Carbon Dioxide Level 29.9 MEQ/L (21.0-32.0) Anion Gap 8 MEQ/L (5-15) Estimat Glomerular Filtration Rate 75 ML/MIN (>89) Result Diagram: 10/24/17 0259 10/24/17 0259 (1) Chronic kidney disease (2) Dyspnea on exertion (3) Multi-vessel coronary artery stenosis Val Ramsey Oct 24, 2017 09:30
--- NOTE | 2017-10-24 09:32 | MB ---
cc: Grey Gray DO DATE: 10/23/2017 REASON FOR CONSULTATION: Unstable angina. HISTORY OF PRESENT ILLNESS: Williams Dunne is a pleasant 72-year-old male who sees my partner, Dr. Busby, in the office and underwent exercise treadmill stress testing. During this, he had significant ST depressions and had a high risk Tabor treadmill score. Because of this, he was recommended cardiac catheterization. He underwent the procedure on 10/23/2017 and during it was found to have significant disease. Because of this, as well as his symptoms, I recommended that he be admitted and placed on a heparin drip. In seeing him, he is currently hemodynamically stable, without chest pain. PAST MEDICAL HISTORY: 1. Coronary artery disease. 2. Chronic kidney disease. 3. Colon polyps. 4. Prediabetes. 5. Hyperlipidemia. PAST SURGICAL HISTORY: 1. Cardiac catheterization (10/23/2017), left main 10%, ostial LAD 95%, mid-LAD 99%, diagonal 40%, circumflex 20%, obtuse marginal 60-70%, RCA 20%. 2. Basal cell carcinoma removed from the left ear and the right ear. 3. Thymectomy (1984). 4. Vasectomy. 5. Prostate biopsy. 6. Lithotripsy. 7. Left knee arthroscopic surgery. 8. Colonoscopy. ALLERGIES: NO KNOWN DRUG ALLERGIES. MEDICATIONS: 1. Claritin 10 mg daily. 2. Lipitor 40 mg every night. 3. Norvasc 2.5 mg daily. 4. Aspirin 81 mg daily. 5. Flonase b.i.d. FAMILY HISTORY: Mother at the age of 96 from old age. Father from cancer at the age of 62. SOCIAL HISTORY: The patient previously exercised quite a bit, but has been unable to recently. Denies alcohol, tobacco or drug abuse. REVIEW OF SYSTEMS: Fourteen systems were reviewed including osteopathic. Pertinent positives and negatives above, otherwise negative. PHYSICAL EXAMINATION: VITAL SIGNS: Temperature 97.8, heart rate 67, blood pressure 129/79, respirations 16, pulse oximetry 97% on room air. GENERAL: The patient appears well, no acute distress. Alert, awake and oriented x 3. HEENT: Extraocular muscles intact. Mucous membranes moist. NECK: Supple. No JVD at 45 degrees. No carotid bruits heard bilaterally. Carotid upstroke is brisk in nature. HEART: Regular rate and rhythm. Positive for and second heart sounds, with no noted murmurs, gallops or rubs. LUNGS: Clear to auscultation bilaterally. No wheezes, rales or rhonchi. ABDOMEN: Soft, nontender, nondistended. No organomegaly noted. EXTREMITIES: Show no clubbing, cyanosis or edema. Femoral and distal pulses intact bilaterally. NEUROLOGIC: No focal deficits. SKIN: Warm, dry and intact. OSTEOPATHIC: No kyphoscoliosis, lordosis or paraspinal tender points. LABORATORY DATA: Hemoglobin 14.6, hematocrit 42.9, platelets 164, potassium 4.1, BUN 17, creatinine 1.2. ELECTROCARDIOGRAM (10/23/2017, AT 0820): Sinus rhythm, first degree AV block. IMPRESSION: 1. Unstable angina ([place] anginal score 3). 2. Significant coronary artery disease, with ostial left anterior descending disease, mid left anterior descending disease and obtuse marginal disease. 3. Prediabetes. 4. Hyperlipidemia. 5. Chronic kidney disease. RECOMMENDATIONS: 1. Mr. Dunne has had significant symptoms from unstable angina and during his cardiac catheterization was found to have significant disease of his LAD, specifically ostially. Because of this, I felt that he should undergo evaluation for possible coronary artery bypass grafting, as his circumflex system is very large and any stenting of the LAD would impede on his circumflex. 2. He has had significant symptoms and due to the significance of his disease, I feel that he should be admitted inpatient and placed on a heparin drip. 3. Heparin drip. We will start 1 hour after his radial band is removed. 4. CT surgery has been consulted for consideration of coronary artery bypass grafting. 5. We will check a 2D echo to look at his overall left ventricular function, cardiac structure and possible valvulopathies. 6. Further recommendations will be made after evaluation by CT surgery. Thank you for allowing me to see Williams Dunne. If there are any questions, please do not hesitate to call. DO CHINO Villaseñor/NIALL , 11:54 PM , 12:34 AM
--- NOTE | 2017-10-24 10:17 | RADRPT ---
EXAM DATE/TIME: 10/23/2017 15:12 [facility] COMPARISON: No previous studies available for comparison. INDICATIONS : Preoperative CABG. RADIATION DOSE: 9.72 CTDIvol (mGy) MEDICAL HISTORY : Basal cell carcinoma, chronic kidney disease. SURGICAL HISTORY : Sternotomy ENCOUNTER: Initial ACUITY: 1 day PAIN SCALE: 0/10 LOCATION: chest TECHNIQUE: Volumetric scanning of the chest was performed. Using automated exposure control and adjustment of t he mA and/or kV according to patient size, radiation dose was kept as low as reasonably achievable to obtain optimal diagnostic quality images. DICOM format image data is available electronically for r eview and comparison. Follow-up recommendations for detected pulmonary nodules are based at a minimum on nodule size and pa tient risk factors according to Fleischner Society Guidelines. FINDINGS: LUNGS: Lungs are hyperinflated. There are no suspicious pulmonary nodules or evidence of acute airspace dise ase. Central airway disease is noted with mild bronchial wall thickening and dilatation. PLEURAE: There is no pleural thickening or pleural effusion. MEDIASTINUM: The heart and great vessels demonstrate no acute abnormality. Mild coronary artery calcification is n oted. There is no mediastinal or hilar lymphadenopathy. AXILLAE: Within normal limits. No lymphadenopathy. MUSCULOSKELETAL: Median sternotomy wires are identified. Osseous structures are otherwise intact. MISCELLANEOUS: Numerous cysts are identified throughout the liver. Large calcified stones are noted in the gallbladd er. CONCLUSION: 1. COPD 2. Central airway disease with bronchial wall thickening and mild dilatation. 3. No evidence of acute process or suspicious pulmonary nodules. 4. Cholelithiasis 5. Multiple hepatic cysts Cristobal Mckeon MD on October 24, 2017 at 10:07 Board Certified Radiologist. This report was verified electronically.
--- NOTE | 2017-10-24 11:50 | PD.CARD.PN ---
Subjective Subjective Remarks No events overnight No chest pain/SOB Objective Medications Current Medications Medications (Trade) Dose Ordered Sig/Jillian Route Start Time Stop Time Status Last Admin Sodium Chloride 1,000 ml @ 30 mls/hr Q24H IV 10/23/17 09:00 (Heparin Inj) 5,000 units UNSCH PRN IV PUSH 10/23/17 18:30 (Heparin Inj) 2,500 units UNSCH PRN IV PUSH 10/23/17 18:30 Heparin Sodium/ Dextrose 250 ml @ 9.516 mls/ hr TITRATE PRN IV 10/23/17 12:30 10/23/17 16:22 (Norvasc) 2.5 mg DAILY PO 10/24/17 09:00 10/24/17 08:50 (Aspirin Chew) 81 mg DAILY CHEW 10/24/17 09:00 10/24/17 08:50 (Lipitor) 40 mg HS PO 10/23/17 21:00 10/23/17 21:00 (NS Flush) 2 ml BID IV FLUSH 10/23/17 21:00 10/24/17 08:51 (NS Flush) 2 ml UNSCH PRN IV FLUSH 10/23/17 13:00 Papaverine HCl 60 mg/Nitroglycerin 100 mcg/Diltiazem HCl 100 mg/Sodium Chloride 100 ml @ 0 mls/hr FOOT MITER OPERATOR IRRIGATION 10/23/17 13:00 10/30/17 12:59 Cefazolin Sodium 500 mg/Sodium Chloride 505 ml @ 0 mls/hr FOOT MITER OPERATOR IRRIGATION 10/23/17 13:00 10/30/17 12:59 Cefazolin Sodium 2000 mg/Sodium Chloride 100 ml @ 200 mls/hr FOOT MITER OPERATOR IV 10/23/17 13:45 10/26/17 13:44 (Lopressor) 12.5 mg FOOT MITER OPERATOR PO 10/23/17 13:00 10/30/17 12:59 (Hibiclens 4% Top Soln) 1 applic FOOT MITER OPERATOR TOPICAL 10/23/17 13:00 10/30/17 12:59 Insulin Human Regular 100 units/ Sodium Chloride 100 ml @ 3 mls/hr TITRATE PRN IV 10/23/17 13:00 10/30/17 12:59 (D50w (Vial) Inj) 50 ml UNSCH PRN IV PUSH 10/23/17 13:00 Cefazolin Sodium 2000 mg/Sodium Chloride 120 ml @ 240 mls/hr FOOT MITER OPERATOR IV 10/23/17 13:45 (Pill Splitter) 1 ea UNSCH PRN OTHER 10/23/17 13:45 Vital Signs / I&O Vital Signs Date Time Temp Pulse Resp B/P (MAP) Pulse Ox O2 Delivery O2 Flow Rate FiO2 10/24/17 11:00 78 10/24/17 11:00 98.3 78 18 105/61 (76) 100 10/24/17 10:00 81 10/24/17 09:00 67 10/24/17 08:00 69 10/24/17 07:23 97.8 66 18 117/68 (84) 100 10/24/17 07:00 68 10/24/17 03:00 57 10/24/17 03:00 98.4 74 16 118/69 (85) 97 10/23/17 23:00 97.8 74 16 118/69 (85) 97 10/23/17 23:00 66 10/23/17 19:00 80 10/23/17 19:00 97.5 68 12 103/63 (76) 95 10/23/17 15:00 98.6 69 18 135/88 (104) 97 10/23/17 15:00 70 10/23/17 12:02 97 Room Air I/O 10/23/17 10/23/17 10/23/17 10/24/17 10/24/17 10/24/17 07:00 15:00 23:00 07:00 15:00 23:00 Intake Total 614 ml Output Total 500 ml Balance 114 ml Intake Oral 480 ml IV Total 134 ml Output Urine Total 500 ml # Voids 1 # Bowel Movements 1 Physical Exam GENERAL: NAD, AAOx3 SKIN: Warm and dry. HEAD: Atraumatic. Normocephalic. EYES: Pupils equal and round. No scleral icterus. No injection or drainage. ENT: No nasal bleeding or discharge. Mucous membranes pink and moist. NECK: Trachea midline. No JVD. CARDIOVASCULAR: Regular rate and rhythm. RESPIRATORY: No accessory muscle use. Clear to auscultation. Breath sounds equal bilaterally. GASTROINTESTINAL: Abdomen soft, non-tender, nondistended. Hepatic and splenic margins not palpable. MUSCULOSKELETAL: Extremities without clubbing, cyanosis, or edema. No obvious deformities. NEUROLOGICAL: Awake and alert. No obvious cranial nerve deficits. Motor grossly within normal limits. Five out of 5 muscle strength in the arms and legs. Normal speech. PSYCHIATRIC: Appropriate mood and affect; insight and judgment normal. Laboratory Laboratory Tests Test 10/23/17 14:30 10/23/17 16:20 10/23/17 19:45 10/24/17 00:47 Urine Color YELLOW Urine Turbidity CLEAR Urine pH 7.5 Urine Specific [place] 1.036 Urine Protein NEG mg/dL Urine Glucose (UA) NEG mg/dL Urine Ketones NEG mg/dL Urine Occult Blood NEG Urine Nitrite NEG Urine Bilirubin NEG Urine Urobilinogen LESS THAN 2.0 MG/DL Urine Leukocyte Esterase NEG Urine RBC 1 /hpf Urine WBC 2 /hpf Microscopic Urinalysis Comment CULT NOT INDICATED Nasal Screen MRSA (PCR) MRSA NOT DETECTED Activated Partial Thromboplast Time 32.9 SEC 39.0 SEC Test 10/24/17 02:59 10/24/17 10:15 White Blood Count 6.0 TH/MM3 Red Blood Count 4.09 MIL/MM3 Hemoglobin 13.2 GM/DL Hematocrit 39.1 % Mean Corpuscular Volume 95.7 FL Mean Corpuscular Hemoglobin 32.3 PG Mean Corpuscular Hemoglobin Concent 33.7 % Red Cell Distribution Width 13.5 % Platelet Count 143 TH/MM3 Mean Platelet Volume 9.5 FL Neutrophils (%) (Auto) 62.2 % Lymphocytes (%) (Auto) 25.3 % Monocytes (%) (Auto) 7.7 % Eosinophils (%) (Auto) 4.3 % Basophils (%) (Auto) 0.5 % Neutrophils # (Auto) 3.7 TH/MM3 Lymphocytes # (Auto) 1.5 TH/MM3 Monocytes # (Auto) 0.5 TH/MM3 Eosinophils # (Auto) 0.3 TH/MM3 Basophils # (Auto) 0.0 TH/MM3 CBC Comment DIFF FINAL Differential Comment Blood Urea Nitrogen 22 MG/DL Creatinine 0.98 MG/DL Random Glucose 110 MG/DL Total Protein 6.4 GM/DL Albumin 3.4 GM/DL Calcium Level 8.5 MG/DL Alkaline Phosphatase 74 U/L Aspartate Amino Transf (AST/SGOT) 12 U/L Alanine Aminotransferase (ALT/SGPT) 21 U/L Total Bilirubin 0.8 MG/DL Sodium Level 143 MEQ/L Potassium Level 3.8 MEQ/L Chloride Level 105 MEQ/L Carbon Dioxide Level 29.9 MEQ/L Anion Gap 8 MEQ/L Estimat Glomerular Filtration Rate 75 ML/MIN Activated Partial Thromboplast Time 58.8 SEC Assessment and Plan Problem List: (1) Chronic kidney disease ICD Codes: N18.9 - Chronic kidney disease, unspecified (2) Dyspnea on exertion ICD Codes: R06.09 - Other forms of dyspnea (3) Multi-vessel coronary artery stenosis ICD Codes: I25.10 - Atherosclerotic heart disease of jam[place] coronary artery without angina pectoris Assessment and Plan 1) USA/MVCAD Heparin drip Possible CABG tomorrow 2) EF 50-55% Grey Gray DO Oct 24, 2017 11:50
[2017-10-24] MEDS: HEPARIN-D5W 25,000 U/250 ML 250 ML IV PRN (13:01)
--- NOTE | 2017-10-24 13:33 | HHI.PR ---
Subjective Remarks Patient reports he is feeling well. He denies chest pain or shortness of breath. Objective Vitals Vital Signs Date Time Temp Pulse Resp B/P (MAP) Pulse Ox O2 Delivery O2 Flow Rate FiO2 10/24/17 13:00 72 10/24/17 12:00 73 10/24/17 11:00 78 10/24/17 11:00 98.3 78 18 105/61 (76) 100 10/24/17 10:00 81 10/24/17 09:00 67 10/24/17 08:00 69 10/24/17 07:23 97.8 66 18 117/68 (84) 100 10/24/17 07:00 68 10/24/17 03:00 57 10/24/17 03:00 98.4 74 16 118/69 (85) 97 10/23/17 23:00 97.8 74 16 118/69 (85) 97 10/23/17 23:00 66 10/23/17 19:00 80 10/23/17 19:00 97.5 68 12 103/63 (76) 95 10/23/17 15:00 98.6 69 18 135/88 (104) 97 10/23/17 15:00 70 I/O 10/23/17 10/23/17 10/23/17 10/24/17 10/24/17 10/24/17 07:00 15:00 23:00 07:00 15:00 23:00 Intake Total 614 ml Output Total 500 ml Balance 114 ml Intake Oral 480 ml IV Total 134 ml Output Urine Total 500 ml # Voids 1 # Bowel Movements 1 Result Diagram: 10/24/17 0259 10/24/17 0259 Objective Remarks GENERAL: This is a well-nourished, well-developed patient, in no apparent distress. CARDIOVASCULAR: Normal rate and regular rhythm without murmurs, gallops, or rubs. RESPIRATORY: Good respiratory efforts. Breath sounds equal and clear to auscultation bilaterally. GASTROINTESTINAL: Abdomen soft, non-tender, non-distended. Normal active bowel sounds MUSCULOSKELETAL: Extremities without cyanosis, or edema. NEURO: Alert & Oriented x4 to person, place, time, situation. Moves all ext x4 PSYCH: Appropriate mood and affect. A/P Problem List: (1) Multi-vessel coronary artery stenosis ICD Code: I25.10 - Atherosclerotic heart disease of [place] coronary artery without angina pectoris Plan: Patient is status post heart catheterization with revealed multivessel disease including stenosis of the LAD, Circumflex, RCA - CT surgery evaluated the patient and plan for CABG tomorrow . - Continue Aspirin and Lipitor (2) Dyspnea on exertion ICD Code: R06.09 - Other forms of dyspnea Plan: Related to CAD. See above. Kwadwo Villalta MD Oct 24, 2017 13:33
[2017-10-24] MEDS: ATORVASTATIN 40 MG TAB PO SCH (20:56)
[2017-10-25] VITALS (18 sets, daily range): BP systolic 89–128; BP diastolic 38–66; PULSE 48–92; RESP 10–19; TEMP 96.9–98.7; O2SAT 96–99
[2017-10-25] MEDS ORDERED: POVIDONE IODINE 5% (ANTISEPSIS KIT) 4 APPLICATIONS EACH NARE PRN (03:00)
[2017-10-25] MEDS ORDERED: SODIUM CHLORID 0.9% 500 ML IV PRN (03:00)
[2017-10-25] MEDS ORDERED: CHLORHEXIDINE GLUCONATE 2 % 1 PACK (2 CLOTHS) TOPICAL PRN (03:00)
[2017-10-25] MEDS ORDERED: LACTATED RINGER'S 1000 ML IV PRN (03:00)
[2017-10-25] MEDS ORDERED: PROTAMINE SULFATE 50 MG/5 ML VIAL ONE (06:23)
[2017-10-25] MEDS ORDERED: methylPREDNISolone SOD SUCC 125 MG/2 ML VIAL ONE (06:24)
[2017-10-25] MEDS ORDERED: HEPARIN SODIUM - SQ 10,000 UNITS/ML VIAL ONE ×2 (06:24)
[2017-10-25] MEDS ORDERED: ceFAZolin INJ 1,000 MG VIAL ONE ×2 (06:24→10:36)
[2017-10-25] MEDS ORDERED: VANCOMYCIN HCL 1000 MG VIAL ONE (06:24)
[2017-10-25] MEDS ORDERED: CARDIOPLEGIC IRR 2,000 ML ONE (08:15)
[2017-10-25] MEDS ORDERED: ALBUMIN 25% INJ 50 ML IV ONE (08:15)
[2017-10-25] MEDS ORDERED: HEPARIN SODIUM - IV 10,000 UNITS/10 ML VIAL ONE (08:16)
[2017-10-25] MEDS ORDERED: POTASSIUM CHLORIDE 20 MEQ/10 ML VIAL ONE ×2 (08:16)
[2017-10-25] MEDS ORDERED: CALCIUM CHLORIDE 10% SOLN 1 GRAM/10 ML SYR ONE (08:17)
[2017-10-25] MEDS ORDERED: SODIUM BICARBONATE 8.4% INJ 50 ML ONE (08:17)
[2017-10-25] MEDS ORDERED: MANNITOL INJ 100 ML ONE (08:17)
[2017-10-25] MEDS: SODIUM CHLORIDE 0.9% FLUSH 10 ML FLUSH IV FLUSH SCH ×2 (09:00→21:00)
[2017-10-25] MEDS: ASPIRIN 81 MG CHEW TAB CHEW SCH (09:00)
[2017-10-25] MEDS: NS 1000P @30 MLS/HR (KVO) IV SCH (09:00)
[2017-10-25] MEDS: amLODIPine BESYLATE 5 MG TAB PO SCH (09:00)
[2017-10-25] MEDS ORDERED: POTASSIUM CHLOR 20 MEQ PREMIX 100 ML ONE (11:02)
[2017-10-25] MEDS ORDERED: ONDANSETRON HCL 4 MG/2 ML VIAL IV PUSH PRN (11:30)
[2017-10-25] MEDS ORDERED: DEXTROSE 50% IN WATER 50 ML VIAL(D50) IV PUSH PRN (11:30)
[2017-10-25] MEDS ORDERED: ACETAMINOPHEN 325 MG TAB PO PRN (11:30)
[2017-10-25] MEDS ORDERED: hydrALAZINE HCL 20 MG/ML VIAL IV PUSH PRN (11:30)
[2017-10-25] MEDS ORDERED: METOPROLOL TARTRATE 5 MG/5 ML VIAL IV PUSH PRN (11:30)
[2017-10-25] MEDS ORDERED: SODIUM BICARBONATE 8.4% SOLN 50 MEQ/50 ML VIAL IV PUSH PRN ×2 (11:30)
[2017-10-25] MEDS ORDERED: RESP: RACEPINEPHRINE 2.25% 0.5 ML NEB NEB PRN (11:30)
[2017-10-25] MEDS ORDERED: DEXMEDETOMIDINE INJ 200 MCG in SODIUM CHLORIDE 0.9% INJ 50 ML IV PRN (11:30)
[2017-10-25] MEDS ORDERED: POTASSIUM CHLOR 20 MEQ PREMIX 100 ML IV PRN ×3 (11:30)
[2017-10-25] MEDS ORDERED: POTASSIUM CHLORIDE 20 MEQ CONTROLLED RELEASE TAB PO PRN ×2 (11:30)
[2017-10-25] MEDS ORDERED: CLEVIDIPINE INJ 50 ML IV PRN (11:30)
[2017-10-25] MEDS ORDERED: oxyCODONE/ACETAMINOPHEN 5 MG/325 MG TAB PO PRN (11:30)
[2017-10-25] MEDS ORDERED: RESP: ALBUTEROL 2.5 MG/IPRATROPIUM 0.5 MG NEB (PRN) NEB (11:30)
[2017-10-25] MEDS ORDERED: INSULIN REGULAR (IV INFUSION) 100 UNITS in SODIUM CHLORIDE 0.9% INJ 99 ML IV PRN (11:30)
[2017-10-25] MEDS ORDERED: SODIUM CHLORIDE 0.9% FLUSH 10 ML FLUSH IV FLUSH PRN (11:30)
[2017-10-25] MEDS ORDERED: ACETAMINOPHEN 650 MG SUPP RECTAL PRN (11:30)
[2017-10-25] MEDS ORDERED: MAGNESIUM SULFATE INJ 2 GM in SODIUM CHLORIDE 0.9% INJ 100 ML IV PRN ×4 (11:30)
[2017-10-25] MEDS ORDERED: CALCIUM CHLORIDE 10% 1 GRAM/10 ML VIAL IV PUSH PRN (11:30)
--- NOTE | 2017-10-25 11:37 | PD.OP ---
cc: Tiffani Corbett MD; Grey Gray DO Operative Report Date of Surgery: Oct 25, 2017 Preoperative Diagnosis: (1) Unstable angina (2) Multi-vessel coronary artery stenosis Postoperative Diagnosis: same Procedure: CABG x 3 CEDENO to LAD - fair SVG to OM - good SVG to D1 - good EVH Anesthesia: Dr. Espinal Surgeon: Tiffani Corbett Rubber Cutter And Shape Carver(s): Sridhar Foreman. [facility] Operation and Findings: The risks, benefits, complications, treatment options, and expected outcomes were discussed with the patient. The possibilities of reaction to medication, pulmonary aspiration, perforation of viscus, bleeding, recurrent infection, the need for additional procedures, failure to diagnose a condition, and creating a complication requiring transfusion or operation were discussed with the patient. The patient concurred with the proposed plan, giving informed consent. The site of surgery properly noted/marked. The patient was taken to Operating Room, identified as Williams Dunne and the procedure verified as CABG, EVH. A Time Out was held and the above information confirmed. Standard monitoring lines and Couch catheter were placed. General anesthesia was induced. The patient was prepped and draped in a sterile fashion. A median sternotomy was performed and electrocautery was used to obtain hemostasis. The left internal mammary artery was procured as a pedicle from the 7th rib to the 1st rib in the usual manner. Simultaneously left greater saphenous vein was procured from the left leg using a minimally invasive endoscopic technique. The vein was prepared for anastomosis and the leg wound was irrigated and closed in 2 layers. The pericardium was opened and a pericardial sling was created using interrupted 0 silk sutures. The patient was heparinized for cardiopulmonary bypass and the distal mammary pedicle was instrumented for anastomosis. The heart was instrumented for cardiopulmonary bypass in the usual manner. Antegrade blood cardioplegia was employed. The patient was placed on cardiopulmonary bypass. An aortic cross-clamp was applied and the heart was arrested using cold blood cardioplegia. Antegrade cardioplegia was administered after he each anastomosis. After adequate arrest, the OM1 was opened with a [place] blade and found to be a 1.5 millimeter good target. Saphenous vein was approximated to the OM1 artery using a running 7 0 Prolene suture. The graft was measured for length and orientation and the proximal anastomosis was constructed to the ascending aorta using a running 5 0 Prolene suture after creating an aortotomy with a 5 millimeter punch. The 1st diagonal artery was then opened with a [place] blade and found to be a 1.5 millimeter good target. Saphenous vein was approximated to the D1 artery using a running 7 0 Prolene suture. The graft was measured for length and orientation and was suspended from the pericardium. The distal LAD was opened with a [place] blade and found to be a 1 millimeter diffusely diseased fair target. The left internal mammary artery was approximated to the LAD using a running 7 0 Prolene suture. The pedicle was attached to the epicardium using interrupted 5 0 silk suture. The patient was systemically rewarmed and received a hotshot dose of warm blood cardioplegia. The aorta was vented and the proximal anastomosis to the D1 graft was accomplished using a running 5 0 Prolene suture after creating an aortotomy was a 5 millimeter punch. The cross-clamp was removed and all proximal and distal anastomoses were examined for hemostasis. The patient was weaned from cardiopulmonary bypass. Protamine was given. There was no adverse reaction. Decannulation was carried out without incident. Wound was checked for hemostasis which was obtained using electrocautery. A 36 Armenian mediastinal and 32 Armenian left pleural chest tubes were placed and secured to the skin with 0 silk suture. The sternum was closed with stainless steel wire. The fascia was closed with 1. PDS. The subcutaneous tissue was closed using a running 2-0 Vicryl suture. The skin was closed with 4-0 Monocryl. Sterile dressings were placed. At the end of the operation, all sponge, instruments, and needle counts were correct. The patient was transferred to the CVICU in stable condition. Findings: Diffusely diseased LAD XC: 47 min CPB: 54 min Drains: mediastinal x 1 pleural x 1 Complications: none Disposition: to CVICU in stable condition Tiffani Corbett MD Oct 25, 2017 11:37
[2017-10-25] MEDS ORDERED: Post-op Orders (for Pharmacy) OTHER ONE (11:40)
[2017-10-25] MEDS ORDERED: MIDAZOLAM HCL 2 MG/2 ML VIAL ONE ×2 (11:56→11:57)
[2017-10-25] MEDS ORDERED: fentaNYL CITRATE 250 MCG/5 ML AMP ONE (11:57)
--- NOTE | 2017-10-25 12:18 | PD.CAR.PN ---
CVT Progress Note Subjective/Hospital Course: 72-year-old male patient of Dr. Luke Augustine, Dr. Sandra Busby, who had been having some chest pain on and off for the last year and a half he recalled , but he described it to Dr. Busby as discomfort for the last couple of months, lasting a couple of hours. He said it was hard to describe, but he has been noticing that he has had some intolerance to walking up a flight of stairs. He walks up a flight of stairs 12 flights to get the mail and has to stop after the seventh to catch his breath, which is not normal to him. Denies having any nausea, vomiting, palpitations. No edema. He underwent elective exercise stress test; however, there was a [address] depression that was noted making him a high risk score. So he underwent elective cardiac catheterization today by Dr. Gray, which showed left main disease of 10%. The proximal LAD had 95%. The mid distal LAD 99%. The diagonal had 40%. The circumflex 20, the OM 60 and the RCA 20%. We were consulted to evaluate for coronary artery bypass grafting since the patient has significant LAD disease, PAST MEDICAL HISTORY: Includes chronic kidney disease, stage II, history of kidney stones, colon polyps, prediabetes, hyperlipidemia. ECHO: no valve disease , EF 50% 10/24 on heparin gtt for surgery in am , carotid ok FEV1 3.08 Objective: Vital Signs Date Time Temp Pulse Resp B/P (MAP) Pulse Ox O2 Delivery O2 Flow Rate FiO2 10/25/17 11:45 99 50 10/25/17 06:08 56 10/25/17 05:11 65 10/25/17 04:11 59 10/25/17 03:55 98.4 68 19 109/66 (80) 97 10/25/17 03:55 59 10/25/17 02:00 59 10/25/17 01:14 66 10/25/17 00:19 63 10/24/17 23:35 68 10/24/17 23:35 98.4 63 19 111/62 (78) 98 10/24/17 22:18 64 10/24/17 21:00 68 10/24/17 20:00 68 10/24/17 19:20 63 10/24/17 19:20 98.3 64 20 107/57 (74) 97 10/24/17 18:00 68 10/24/17 17:00 67 10/24/17 16:00 70 10/24/17 15:42 98.7 70 18 109/61 (77) 100 10/24/17 15:00 78 10/24/17 14:00 87 10/24/17 13:00 72 Result Diagram: 10/24/17 0259 10/24/17 0259 (1) Chronic kidney disease (2) Dyspnea on exertion (3) Multi-vessel coronary artery stenosis Val Ramsey Oct 25, 2017 12:18
--- NOTE | 2017-10-25 12:21 | RADRPT ---
EXAM DATE/TIME: 10/25/2017 12:00 [facility] COMPARISON: No previous studies available for comparison. INDICATIONS : Post CABG. MEDICAL HISTORY : Carcinoma, basal cell. Chronic kidney disease. Pre diabetes. Chest pain. SURGICAL HISTORY : Cardiac cath ENCOUNTER: Subsequent ACUITY: 2 days PAIN SCORE: Non-responsive. LOCATION: Bilateral chest FINDINGS: And interpreted has its tip 4 cm above the kourtney. A nasogastric tube has tip below diaphragm. Left c hest tube is noted with its tip at the left base. There is no pneumothorax. Median sternotomy wires a re noted status post cardiac surgery. Left subclavian central line has its tip in superior vena cava. The lungs are clear. CONCLUSION: Multiple tubes and lines are in good positions. No pneumothorax. No infiltrate or congestion. Sanchez Paige MD on October 25, 2017 at 12:18 Board Certified Radiologist. This report was verified electronically.
--- NOTE | 2017-10-25 12:22 | HHI.FF ---
Face to Face Verification Diagnosis: (1) S/P CABG x 3 (2) Dyspnea on exertion (3) Multi-vessel coronary artery stenosis (4) Chronic kidney disease (5) Unstable angina Home Health Nursing Order: Signs/symptoms of disease process Medication education-adverse effect Wound care and dressing changes Nursing assessment with vital signs Instructions: Heart and Vascular Surgery patients *Special attention to sternal dressing Mandatory frequency Assess and evaluation, 4 days in a row The next week 3X week 2 times a week for 4 weeks 1 time a week for 5 weeks Schedule Heart and Vascular patients for full 60 day certification period Initial visit Review Open Heart Surgery Discharge Instructions (Sternal precautions, Activity, Elastic hose, Incision care, Driving, Incentive spirometry, Smoking, [place], Work and other) Need Betadine to paint incision Medication reconciliation Importance of follow up care/ check on appointments Make calendar record temperature daily When to call [facility] at Home nurse, review instructions, phone list Incentive Spirometry, demonstration Visit 1- Begin discharge instruction for patient family and/ or caregiver using teach back method- Signs and symptoms of infection Disease characteristics Medicines and side effects Foods and nutrition/ appetite Infection control/ hand washing/ hygiene Visit 2- Continue teaching Discharge instructions- include additional information on smoking cessation , sternal dressing (sternal vac) Visit 3- Continue teaching- Cough and deep breathing, incision monitoring. Choose my plate Visit 4- Continue teaching- Discuss limitations Discuss how they are feeling Discuss progress toward goals Remaining visits- continue teaching and monitoring For any questions please call : Monday 8am-5pm Heart & Vascular Surgery Office ( Dr. Awan & Dr. Corbett), After Hours / Nights (5pm -8am) Weekends and Holidays Please call [facility] Cardiac Intermediate Care Unit (CIC) Charge Nurse PREVENA Single Use Negative Wound Therapy System Caregiver Instruction Sheet 1. A Prevena dressing system was applied to the chest incision during surgery , to promote wound healing. It works via a suction device (negative pressure wound therapy) to remove low to moderate levels of exudate (drainage) and infectious materials. We recommend that the device stay in place for up to seven days, from day of surgery. 2. Day of Surgery___/ Day of Removal ____/11/15 3. The dressing should only be removed by a health post acute care registered nurse. Please arrange removal of device to coincide with Home Health visit and or with Nursing staff at Rehab 4. If skin reddening or irritation of skin occurs, or excessive drainage, please notify the Cardiovascular Surgeons office at [phone]. 5. Light showering is permissible; however the pump should be disconnected and placed in safe location, where it will not get wet. The dressing should not be exposed to direct spray or submerged in water. No bath tub / shower only. Ensure the end of the tubing attached to the dressing is facing down so that water does not enter the top of the tube. 6. To remove Prevena dressing: press purple button to turn off device / remove the suction. Then disconnect the tubing from the pump. The fixation strips should be stretched away from the skin and the dressing lifted at one corner and peeled back until it has been fully removed. 7. After removal, it is ok to shower daily using liquid dial soap and clean wash cloth, rinse and pat dry, and leave incision open to air dry. For any concerns regarding Prevena dressing, and or wounds, please contact Ernestine Sebastian, patient navigator at [phone] or notify the Cardiovascular Surgeons office at [phone]. Incentive spirometry Q1 hr x 10, while awake, also use acapella device hourly whole awake Sternal Breast Bone Precautions: NO pushing or pulling, ( pt must use sternal pillow to support chest with all activities and with coughing ( takes up to 3 months breast bone to heal ) Daily incision care: ok to shower daily, no tub bath. Wash all incisions with liquid dial soap, clean wash cloth to each site, rinse and pat dry. Observe for any signs of infection, such as drainage which is dark yellow, mays, green or foul smelling. Immediately report to the surgeon any drainage from the chest incision, or legs, and for any abnormal drainage from the chest tube sites. Notify surgeon if any temp >101.5 degrees F. When specialty dressing removed/ or if you do not have one, continue to shower daily as above, then rinse and pat incision dry and paint with betadine daily x 5 days. Allow steri strips to fall off if you have any. Avoid lotions, creams, salves, oils, etc. for the first month Please see attached forms for additional instructions regarding post Open Heart specialty wound vacuum dressings. GREGORIO or Prevena , Dressing to be removed by Nursing staff on _11/01/[address] Corbett patients , please obtain CBC, BMP, PA & Lat CXR in 2 weeks, results to Dr. Corbett ( prescription will be given) ( ) (Tele: [phone]) , F/U appointment: as per DC instructions: PCP in 2 weeks, CV surgeon 2 weeks, [employer] Lab Technician 3-4 weeks For any questions regarding incisions/ dressing / meds / post op care or above Symptoms, Monday 8am-5pm Heart & Vascular Surgery Office ( Dr. Awan & Dr. Corbett), After Hours / Nights (5pm -8am) Weekends and Holidays Please call [facility] Cardiac Intermediate Care Unit (CIC) Charge Nurse I have seen patient Williams Dunne on 10/25/17. My clinical findings support the need for the requested home health care services because: Deconditioned w/ increased weakness I certify that my clinical findings support that this patient is homebound because: Post-op weakness Val Ramsey Oct 25, 2017 12:22
[2017-10-25] MEDS: CALCIUM CHLORIDE INJ 1 GM in SODIUM CHLORIDE 0.9% INJ 100 ML IV PRN ×3 (12:37→22:44)
[2017-10-25] MEDS: ALBUMIN 5% INJ 250 ML IV PRN ×2 (13:09→14:00)
[2017-10-25] MEDS: ACETAMINOPHEN 1000 MG/100 ML 100 ML IV SCH ×2 (13:51→20:02)
--- NOTE | 2017-10-25 13:57 | RSPPFT ---
DATE OF PROCEDURE: 10/23/17 COMMENTS: Spirometry with FVC of 4.0 predicted 4.2, FEV1 of 3.0 predicted 3.3, FEV1/FVC ratio 77% predicted 78%. IMPRESSION: On the basis of the above, patient has flow values within the predicted range.
[2017-10-25] MEDS: AMIODARONE 200 MG TAB PO SCH ×2 (14:00→21:14)
[2017-10-25] MEDS: LACTATED RINGER'S 1000 ML INJ 500 ML IV PRN (14:53)
[2017-10-25] MEDS: RESP: ALBUTEROL 2.5 MG/IPRATROPIUM 0.5 MG NEB (SCH) NEB ×2 (16:30→20:24)
[2017-10-25 19:29] LABS: HEMOGLOBIN A1C 5.7 % (4.3-6.0)
--- NOTE | 2017-10-25 19:40 | PD.CARD.PN ---
Subjective Subjective Remarks Patient was seen earlier today, late entry note Post-CABG Extubated, doing well overall No vasopressors Objective Medications Current Medications Medications (Trade) Dose Ordered Sig/Jillian Route Start Time Stop Time Status Last Admin Sodium Chloride 1,000 ml @ 30 mls/hr Q24H IV 10/23/17 09:00 (Norvasc) 2.5 mg DAILY PO 10/24/17 09:00 10/24/17 08:50 (Lipitor) 40 mg HS PO 10/23/17 21:00 10/24/17 20:56 Papaverine HCl 60 mg/Nitroglycerin 100 mcg/Diltiazem HCl 100 mg/Sodium Chloride 100 ml @ 0 mls/hr [employer] IRRIGATION 10/23/17 13:00 10/30/17 12:59 10/25/17 09:58 Cefazolin Sodium 500 mg/Sodium Chloride 505 ml @ 0 mls/hr [employer] IRRIGATION 10/23/17 13:00 10/30/17 12:59 10/25/17 09:52 (Lopressor) 12.5 mg [employer] PO 10/23/17 13:00 10/30/17 12:59 10/25/17 05:06 (Hibiclens 4% Top Soln) 1 applic [employer] TOPICAL 10/23/17 13:00 10/30/17 12:59 10/24/17 21:41 (Pill Splitter) 1 ea UNSCH PRN OTHER 10/23/17 13:45 Lactated Ringer's 1,000 ml @ 30 mls/hr Q24H PRN IV 10/25/17 03:00 10/28/17 02:59 Sodium Chloride 500 ml @ 30 mls/hr [id number] PRN IV 10/25/17 03:00 10/28/17 02:59 (Betadine 5% Antisepsis Kit) 1 applic [employer] PRN EACH NARE 10/25/17 03:00 10/28/17 02:59 (Chlorhexidine 2% Cloth) 3 pack [employer] PRN TOPICAL 10/25/17 03:00 10/28/17 02:59 (NS Flush) 2 ml BID IV FLUSH 10/25/17 21:00 (NS Flush) 2 ml UNSCH PRN IV FLUSH 10/25/17 11:30 Dexmedetomidine HCl 200 mcg/ Sodium Chloride 52 ml @ 4.08 mls/hr TITRATE PRN IV 10/25/17 11:30 10/25/17 11:45 Clevidipine 50 ml @ 2 mls/hr TITRATE PRN IV 10/25/17 11:30 Albumin Human 250 ml @ 250 mls/hr UNSCH PRN IV 10/25/17 11:30 10/25/17 14:00 Lactated Ringer's 500 ml @ 500 mls/hr Q1H PRN IV 10/25/17 11:22 10/25/17 14:53 Cefazolin Sodium 1000 mg/Sodium Chloride 100 ml @ 200 mls/hr Q8H IV 10/25/17 18:00 10/27/17 02:29 10/25/17 18:19 (Aspirin Chew) 81 mg DAILY PO 10/26/17 09:00 (Protonix) 40 mg DAILY@06 PO 10/26/17 06:00 (Cordarone) 400 mg Q8HR PO 10/25/17 14:00 (Tylenol) 650 mg Q4H PRN PO 10/25/17 11:30 (Tylenol Supp) 650 mg Q4H PRN RECTAL 10/25/17 11:30 Acetaminophen 100 ml @ 400 mls/hr Q6H IV 10/25/17 14:00 10/26/17 08:14 10/25/17 13:51 (Percocet 5-325 Mg) 1 tab Q3H PRN PO 10/25/17 11:30 (fentaNYL INJ) 25 mcg Q1H PRN IV PUSH 10/25/17 11:30 (Zofran Inj) 4 mg Q6H PRN IV PUSH 10/25/17 11:30 (Apresoline Inj) 10 mg Q4H PRN IV PUSH 10/25/17 11:30 (Lopressor Inj) 2.5 mg Q1H PRN IV PUSH 10/25/17 11:30 Potassium Chloride 100 ml @ 50 mls/hr UNSCH PRN IV 10/25/17 11:30 Potassium Chloride 100 ml @ 50 mls/hr UNSCH PRN IV 10/25/17 11:30 (KCl) 20 meq UNSCH PRN PO 10/25/17 11:30 (KCl) 40 meq UNSCH PRN PO 10/25/17 11:30 Magnesium Sulfate 2 gm/Sodium Chloride 104 ml @ 100 mls/hr UNSCH PRN IV 10/25/17 11:30 Magnesium Sulfate 2 gm/Sodium Chloride 104 ml @ 50 mls/hr UNSCH PRN IV 10/25/17 11:30 Calcium Chloride 1 gm/Sodium Chloride 110 ml @ 100 mls/hr UNSCH PRN IV 10/25/17 11:30 10/25/17 15:11 (Calcium Chloride Inj) 0.5 gm UNSCH PRN IV PUSH 10/25/17 11:30 Insulin Human Regular 100 units/ Sodium Chloride 100 ml @ 3 mls/hr TITRATE PRN IV 10/25/17 11:30 10/25/17 11:45 (D50w (Vial) Inj) 50 ml UNSCH PRN IV PUSH 10/25/17 11:30 (Sodium Bicarbonate 8.4% Inj) 50 meq UNSCH PRN IV PUSH 10/25/17 11:30 (Sodium Bicarbonate 8.4% Inj) 100 meq UNSCH PRN IV PUSH 10/25/17 11:30 (Duoneb Neb) 1 ampule Q6HR NEB NEB 10/25/17 16:00 10/25/17 16:30 (Duoneb Neb) 1 ampule Q2HR NEB PRN NEB 10/25/17 11:30 (Racepinephrine 2.25% Neb) 0.5 ml UNSCH X1 PRN NEB 10/25/17 11:30 10/26/17 11:29 Vital Signs / I&O Vital Signs Date Time Temp Pulse Resp B/P (MAP) Pulse Ox O2 Delivery O2 Flow Rate FiO2 10/25/17 18:00 48 10/25/17 17:00 80 10/25/17 16:00 69 10/25/17 15:00 76 10/25/17 15:00 96.9 76 14 103/54 (70) 99 10/25/17 14:43 98 Nasal Cannula 4 10/25/17 14:43 96 Nasal Cannula 4.00 10/25/17 14:38 99 Nasal Cannula 4.00 10/25/17 14:38 40 10/25/17 12:13 98.4 68 10 101/62 (75) 99 89/38 (55) 10/25/17 11:45 68 10/25/17 11:45 50 10/25/17 11:45 99 50 3/28/18 06:08 56 10/25/17 05:11 65 10/25/17 04:11 59 10/25/17 03:55 98.4 68 19 109/66 (80) 97 10/25/17 03:55 59 10/25/17 02:00 59 10/25/17 01:14 66 10/25/17 00:19 63 10/24/17 23:35 68 10/24/17 23:35 98.4 63 19 111/62 (78) 98 10/24/17 22:18 64 10/24/17 21:00 68 10/24/17 20:00 68 I/O 10/24/17 10/24/17 10/24/17 10/25/17 10/25/17 10/25/17 07:00 15:00 23:00 07:00 15:00 23:00 Intake Total 614 ml 920 ml 240 ml 4825 ml 230 ml Output Total 500 ml 800 ml 1425 ml 550 ml 1195 ml Balance 114 ml 120 ml -1185 ml 4275 ml -965 ml Intake Oral 480 ml 920 ml 240 ml IV Total 134 ml 1475 ml 230 ml Autotransfusion 750 ml Other 2600 ml Output Urine Total 500 ml 800 ml 1425 ml 550 ml 765 ml Chest Tube Drainage Total 430 ml # Voids 1 # Bowel Movements 1 1 0 0 Physical Exam GENERAL: NAD, AAOx3 SKIN: Warm and dry. HEAD: Atraumatic. Normocephalic. EYES: Pupils equal and round. No scleral icterus. No injection or drainage. ENT: No nasal bleeding or discharge. Mucous membranes pink and moist. NECK: Trachea midline. No JVD. CARDIOVASCULAR: Regular rate and rhythm. RESPIRATORY: No accessory muscle use. Clear to auscultation. Breath sounds equal bilaterally. GASTROINTESTINAL: Abdomen soft, non-tender, nondistended. Hepatic and splenic margins not palpable. MUSCULOSKELETAL: Extremities without clubbing, cyanosis, or edema. No obvious deformities. NEUROLOGICAL: Awake and alert. No obvious cranial nerve deficits. Motor grossly within normal limits. Five out of 5 muscle strength in the arms and legs. Normal speech. PSYCHIATRIC: Appropriate mood and affect; insight and judgment normal. Laboratory Laboratory Tests Test 10/24/17 22:39 Activated Partial Thromboplast Time 46.3 SEC Imaging Last 24 hours Impressions Chest X-Ray 10/25/17 0000 Signed Impressions: Service Date/Time: Wednesday, October 25, 2017 12:00 - CONCLUSION: Multiple tubes and lines are in good positions. No pneumothorax. No infiltrate or congestion. Sanchez Paige MD Assessment and Plan Problem List: (1) Chronic kidney disease ICD Codes: N18.9 - Chronic kidney disease, unspecified (2) Dyspnea on exertion ICD Codes: R06.09 - Other forms of dyspnea (3) Multi-vessel coronary artery stenosis ICD Codes: I25.10 - Atherosclerotic heart disease of [place] coronary artery without angina pectoris Assessment and Plan 1) USA/MVCAD s/p CABGx3 POD #0 CEDENO to LAD SVG to OM SVG to Diag 2) EF 50-55% 3) Extubated 4) ASA/Statin Eventual Grey Burt DO Oct 25, 2017 19:40
[2017-10-25] MEDS: ATORVASTATIN 40 MG TAB PO SCH (21:14)
[2017-10-26] VITALS (19 sets, daily range): BP systolic 91–132; BP diastolic 42–62; PULSE 71–92; RESP 16–20; TEMP 97.8–98.6; O2SAT 94–99
[2017-10-26] MEDS: ACETAMINOPHEN 1000 MG/100 ML 100 ML IV SCH ×2 (02:22→08:14)
[2017-10-26] MEDS: RESP: ALBUTEROL 2.5 MG/IPRATROPIUM 0.5 MG NEB (SCH) NEB ×3 (03:43→20:30)
[2017-10-26 04:23] LABS: HEMATOCRIT 31.9 % (39.0-51.0); HEMOGLOBIN 10.7 GM/DL (13.0-17.0); MEAN CELL VOLUME 96.2 FL (80.0-100.0); MEAN CORPUSCULAR HEMOGLOBIN 32.4 PG (27.0-34.0); MEAN CORPUSCULAR HGB CONC 33.6 % (32.0-36.0); MEAN PLATELET VOLUME 9.3 FL (7.0-11.0); PLATELET COUNT 109 TH/MM3 (150-450); RED BLOOD COUNT 3.32 MIL/MM3 (4.50-5.90); RED CELL DISTRIBUTION WIDTH 13.9 % (11.6-17.2)
[2017-10-26 04:52] LABS: BICARBONATE 24.3 MEQ/L (21.0-32.0); CALCIUM 8.2 MG/DL (8.5-10.1); CREATININE 0.8 MG/DL (0.60-1.30); MAGNESIUM 1.9 MG/DL (1.5-2.5)
--- NOTE | 2017-10-26 05:02 | RADRPT ---
EXAM DATE/TIME: 10/26/2017 03:46 [facility] COMPARISON: CHEST SINGLE AP, October 25, 2017, 12:00. INDICATIONS : Shortness of breath, possible pulmonary disease. MEDICAL HISTORY : Carcinoma, basal cell. Renal disease. SURGICAL HISTORY : CABG. ENCOUNTER: Subsequent ACUITY: 3 days PAIN SCORE: Non-responsive. LOCATION: Bilateral chest FINDINGS: A single view of the chest demonstrates minimal left basilar density. Left-sided chest tube without d efinite pneumothorax. Status post CABG. Right lung is clear. Osseous structures are intact. CONCLUSION: Minimal left basilar density likely atelectasis. Teodoro Mart MD on October 26, 2017 at 4:59 Board Certified Radiologist. This report was verified electronically.
[2017-10-26] MEDS: AMIODARONE 200 MG TAB PO SCH ×3 (06:25→21:13)
[2017-10-26] MEDS: PANTOPRAZOLE SOD 40 MG DELAYED RELEASE TAB PO SCH (06:25)
[2017-10-26] MEDS ORDERED: DEXTROSE 50% IN WATER 50 ML VIAL(D50) IV PUSH PRN (09:00)
[2017-10-26] MEDS: DOCUSATE SODIUM 100 MG CAP PO SCH ×2 (09:00→21:12)
[2017-10-26] MEDS ORDERED: GLUCAGON 1 MG/ML VIAL OTHER PRN (09:00)
[2017-10-26] MEDS ORDERED: SOD PHOSPHATE/SOD BIPHOSPHATE (ADULT) ENEMA 133ML RECTAL PRN (09:00)
[2017-10-26] MEDS ORDERED: BISACODYL 10 MG SUPP RECTAL PRN (09:00)
[2017-10-26] MEDS: MAGNESIUM HYDROXIDE SUSP 30 ML CUP PO SCH (09:14)
[2017-10-26] MEDS: ASPIRIN 81 MG CHEW TAB PO SCH (09:14)
[2017-10-26] MEDS: MULTIVITAMINS/MINERALS THERAPEUTIC TAB PO SCH (09:15)
[2017-10-26] MEDS: SODIUM CHLORIDE 0.9% FLUSH 10 ML FLUSH IV FLUSH SCH ×2 (09:16→21:13)
[2017-10-26] MEDS: INSULIN ASPART SUPPLEMENTAL SCALE SQ SCH ×4 (10:00→21:20)
--- NOTE | 2017-10-26 11:04 | PD.CAR.PN ---
CVT Progress Note Subjective/Hospital Course: 72-year-old male patient of Dr. Luke Augustine, Dr. Sandra Busby, who had been having some chest pain on and off for the last year and a half he recalled , but he described it to Dr. Busby as discomfort for the last couple of months, lasting a couple of hours. He said it was hard to describe, but he has been noticing that he has had some intolerance to walking up a flight of stairs. He walks up a flight of stairs 12 flights to get the mail and has to stop after the seventh to catch his breath, which is not normal to him. Denies having any nausea, vomiting, palpitations. No edema. He underwent elective exercise stress test; however, there was a [address] depression that was noted making him a high risk score. So he underwent elective cardiac catheterization today by Dr. Gray, which showed left main disease of 10%. The proximal LAD had 95%. The mid distal LAD 99%. The diagonal had 40%. The circumflex 20, the OM 60 and the RCA 20%. We were consulted to evaluate for coronary artery bypass grafting since the patient has significant LAD disease, PAST MEDICAL HISTORY: Includes chronic kidney disease, stage II, history of kidney stones, colon polyps, prediabetes, hyperlipidemia. ECHO: no valve disease , EF 50% 10/24 on heparin gtt for surgery in am , carotid ok FEV1 3.08 10/25 surgery: CABG x 3, CEDENO to LAD - fair, SVG to OM - good, SVG to D1 - good, L EVH extubated after surgery crystalloid 2600cc, 750cc cell saver, 200cc EBL 10/26 up in chair on nasal cannula continue pulm toileting hold on BB , BP labile and has 1st degree AV block, will monitor hold on diuresis today weight up 2 kg stable to transfer to stepdown Objective: GENERAL: A&O x 3 SKIN: Warm and dry. prevena dressing to chest and left leg HEAD: Normocephalic. EYES: No scleral icterus. No injection or drainage. NECK: Supple, trachea midline. No JVD or lymphadenopathy. CARDIOVASCULAR: Regular rate and rhythm without murmurs, gallops, or rubs. + rub RESPIRATORY: Breath sounds equal bilaterally. No accessory muscle use. chest tube no air leak / drained 130cc/ 12 hrs GASTROINTESTINAL: Abdomen soft, non-tender, nondistended. MUSCULOSKELETAL: No cyanosis, or edema. BACK: Nontender without obvious deformity. No CVA tenderness. Vital Signs Date Time Temp Pulse Resp B/P (MAP) Pulse Ox O2 Delivery O2 Flow Rate FiO2 10/26/17 09:52 97 21 10/26/17 07:00 96 Nasal Cannula 2.00 10/26/17 07:00 81 10/26/17 07:00 98.4 81 16 91/53 (66) 96 105/48 (67) 10/26/17 03:45 99 Nasal Cannula 2.00 10/26/17 03:00 98.4 88 16 101/48 (65) 99 106/42 (63) 10/26/17 03:00 99 Nasal Cannula 3.00 10/26/17 03:00 88 10/26/17 02:52 16 10/26/17 01:23 98.6 10/25/17 23:00 98.7 92 16 101/58 (72) 99 128/48 (74) 10/25/17 23:00 92 10/25/17 23:00 99 Nasal Cannula 3.00 10/25/17 21:58 98.6 10/25/17 20:25 99 Nasal Cannula 4.00 10/25/17 19:00 99 Nasal Cannula 4.00 10/25/17 19:00 56 10/25/17 19:00 97.8 56 107/42 (63) 10/25/17 18:00 48 10/25/17 17:00 80 10/25/17 16:00 69 10/25/17 15:00 76 10/25/17 15:00 96.9 76 14 103/54 (70) 99 10/25/17 14:43 98 Nasal Cannula 4 10/25/17 14:43 96 Nasal Cannula 4.00 10/25/17 14:38 99 Nasal Cannula 4.00 10/25/17 14:38 40 10/25/17 12:13 98.4 68 10 101/62 (75) 99 89/38 (55) 10/25/17 11:45 68 10/25/17 11:45 50 10/25/17 11:45 99 50 Labs: Laboratory Tests Test 10/26/17 04:10 White Blood Count 14.0 TH/MM3 (4.0-11.0) Red Blood Count 3.32 MIL/MM3 (4.50-5.90) Hemoglobin 10.7 GM/DL (13.0-17.0) Hematocrit 31.9 % (39.0-51.0) Mean Corpuscular Volume 96.2 FL (80.0-100.0) Mean Corpuscular Hemoglobin 32.4 PG (27.0-34.0) Mean Corpuscular Hemoglobin Concent 33.6 % (32.0-36.0) Red Cell Distribution Width 13.9 % (11.6-17.2) Platelet Count 109 TH/MM3 (150-450) Mean Platelet Volume 9.3 FL (7.0-11.0) Blood Urea Nitrogen 17 MG/DL (7-18) Creatinine 0.80 MG/DL (0.60-1.30) Random Glucose 119 MG/DL (74-106) Calcium Level 8.2 MG/DL (8.5-10.1) Magnesium Level 1.9 MG/DL (1.5-2.5) Sodium Level 141 MEQ/L (136-145) Potassium Level 4.4 MEQ/L (3.5-5.1) Chloride Level 109 MEQ/L (98-107) Carbon Dioxide Level 24.3 MEQ/L (21.0-32.0) Anion Gap 8 MEQ/L (5-15) Estimat Glomerular Filtration Rate 94 ML/MIN (>89) Result Diagram: 10/26/1740910/26/17409 Telemetry: st elevation mild / pericarditis + rub (1) Chronic kidney disease (2) Dyspnea on exertion (3) Multi-vessel coronary artery stenosis (4) S/P CABG x 3 Plan: pulm toileting nebs ezpap on statin amio, ASA hold on starting BB OOB ambulate transfer to stepdown to [facility] Val Ramsey Oct 26, 2017 11:04
--- NOTE | 2017-10-26 13:34 | EKG ---
Date Performed: 10/26/2017 Time Performed: 04:44:50 PTAGE: 72 years EKG: Sinus rhythm with PACs Slight 1st degree AV block Borderline ECG Since PREVIOUS TRACING , no significant change noted PREVIOUS TRACING 10/23/2017 08.20 DOCTOR: Naveen Carter Interpretating Date/Time 10/26/2017 13:33:40
[2017-10-26] MEDS: SENNOSIDES 8.6 MG TAB PO SCH (21:12)
[2017-10-26] MEDS: ATORVASTATIN 40 MG TAB PO SCH (21:13)
--- NOTE | 2017-10-26 22:24 | PD.CARD.PN ---
Subjective Subjective Remarks Patient was seen earlier today, late entry note Post-CABG Up and ambulating the ruiz multiple times Objective Medications Current Medications Medications (Trade) Dose Ordered Sig/Jillian Route Start Time Stop Time Status Last Admin (Lipitor) 40 mg HS PO 10/23/17 21:00 10/26/17 21:13 (Pill Splitter) 1 ea UNSCH PRN OTHER 10/23/17 13:45 (NS Flush) 2 ml BID IV FLUSH 10/25/17 21:00 10/26/17 21:13 (NS Flush) 2 ml UNSCH PRN IV FLUSH 10/25/17 11:30 Cefazolin Sodium 1000 mg/Sodium Chloride 100 ml @ 200 mls/hr Q8H IV 10/25/17 18:00 10/27/17 02:29 10/26/17 18:00 (Aspirin Chew) 81 mg DAILY PO 10/26/17 09:00 10/26/17 09:14 (Protonix) 40 mg DAILY@06 PO 10/26/17 06:00 10/26/17 06:25 (Cordarone) 400 mg Q8HR PO 10/25/17 14:00 10/26/17 21:13 (Tylenol) 650 mg Q4H PRN PO 10/25/17 11:30 (Tylenol Supp) 650 mg Q4H PRN RECTAL 10/25/17 11:30 (Percocet 5-325 Mg) 1 tab Q3H PRN PO 10/25/17 11:30 (Zofran Inj) 4 mg Q6H PRN IV PUSH 10/25/17 11:30 (D50w (Vial) Inj) 50 ml UNSCH PRN IV PUSH 10/25/17 11:30 (Duoneb Neb) 1 ampule Q2HR NEB PRN NEB 10/25/17 11:30 (Duoneb Neb) 1 ampule Q6HR WHILE AWAKE NEB NEB 10/26/17 14:00 10/28/17 13:59 10/26/17 20:30 (Colace) 100 mg BID PO 10/26/17 09:00 10/26/17 21:12 (Theragran M Tab) 1 tab DAILY PO 10/26/17 09:00 10/26/17 09:15 (Milk Of Magnesia Liq) 30 ml DAILY PO 10/26/17 09:00 10/26/17 09:14 (Dulcolax Supp) 10 mg UNSCH PRN RECTAL 10/26/17 09:00 (Miralax) 17 gm DAILY PO 10/27/17 09:00 (Senokot) 8.6 mg HS PO 10/26/17 21:00 10/26/17 21:12 (Fleets Enema (Adult)) 118 ml UNSCH PRN RECTAL 10/26/17 09:00 (NovoLOG SUPPLEMENTAL SCALE) 1 02,06,10,14,18,22 SQ 10/26/17 10:00 10/26/17 18:00 (D50w (Vial) Inj) 50 ml UNSCH PRN IV PUSH 10/26/17 09:00 (Glucagon Inj) 1 mg UNSCH PRN OTHER 10/26/17 09:00 Vital Signs / I&O Vital Signs Date Time Temp Pulse Resp B/P (MAP) Pulse Ox O2 Delivery O2 Flow Rate FiO2 10/26/17 20:30 98 10/26/17 18:00 77 10/26/17 17:00 81 10/26/17 16:00 82 10/26/17 15:00 98.2 71 20 94/58 (70) 98 10/26/17 15:00 98 Room Air 10/26/17 15:00 88 10/26/17 14:00 80 10/26/17 13:00 86 10/26/17 12:00 92 10/26/17 11:00 98.1 83 20 126/61 (82) 98 Arterial Line 10/26/17 11:00 98 Room Air 10/26/17 11:00 80 10/26/17 09:52 97 21 10/26/17 07:00 96 Nasal Cannula 2.00 10/26/17 07:00 81 10/26/17 07:00 98.4 81 16 91/53 (66) 96 105/48 (67) 10/26/17 03:45 99 Nasal Cannula 2.00 10/26/17 03:00 98.4 88 16 101/48 (65) 99 106/42 (63) 10/26/17 03:00 99 Nasal Cannula 3.00 10/26/17 03:00 88 10/26/17 02:52 16 10/26/17 01:23 98.6 10/25/17 23:00 98.7 92 16 101/58 (72) 99 128/48 (74) 10/25/17 23:00 92 10/25/17 23:00 99 Nasal Cannula 3.00 I/O 10/25/17 10/25/17 10/25/17 10/26/17 10/26/17 10/26/17 07:00 15:00 23:00 07:00 15:00 23:00 Intake Total 240 ml 4825 ml 330 ml 790 ml 450 ml 720 ml Output Total 1425 ml 550 ml 1195 ml 690 ml 680 ml Balance -1185 ml 4275 ml -865 ml 100 ml 450 ml 40 ml Intake Oral 240 ml 480 ml 720 ml IV Total 1475 ml 330 ml 310 ml 450 ml Autotransfusion 750 ml Other 2600 ml Output Urine Total 1425 ml 550 ml 765 ml 560 ml 450 ml Chest Tube Drainage Total 430 ml 130 ml 230 ml # Bowel Movements 0 0 0 Physical Exam GENERAL: NAD, AAOx3 SKIN: Warm and dry. HEAD: Atraumatic. Normocephalic. EYES: Pupils equal and round. No scleral icterus. No injection or drainage. ENT: No nasal bleeding or discharge. Mucous membranes pink and moist. NECK: Trachea midline. No JVD. CARDIOVASCULAR: Regular rate and rhythm. RESPIRATORY: No accessory muscle use. Clear to auscultation. Breath sounds equal bilaterally. GASTROINTESTINAL: Abdomen soft, non-tender, nondistended. Hepatic and splenic margins not palpable. MUSCULOSKELETAL: Extremities without clubbing, cyanosis, or edema. No obvious deformities. NEUROLOGICAL: Awake and alert. No obvious cranial nerve deficits. Motor grossly within normal limits. Five out of 5 muscle strength in the arms and legs. Normal speech. PSYCHIATRIC: Appropriate mood and affect; insight and judgment normal. Laboratory Laboratory Tests Test 10/26/17 04:10 White Blood Count 14.0 TH/MM3 Red Blood Count 3.32 MIL/MM3 Hemoglobin 10.7 GM/DL Hematocrit 31.9 % Mean Corpuscular Volume 96.2 FL Mean Corpuscular Hemoglobin 32.4 PG Mean Corpuscular Hemoglobin Concent 33.6 % Red Cell Distribution Width 13.9 % Platelet Count 109 TH/MM3 Mean Platelet Volume 9.3 FL Blood Urea Nitrogen 17 MG/DL Creatinine 0.80 MG/DL Random Glucose 119 MG/DL Calcium Level 8.2 MG/DL Magnesium Level 1.9 MG/DL Sodium Level 141 MEQ/L Potassium Level 4.4 MEQ/L Chloride Level 109 MEQ/L Carbon Dioxide Level 24.3 MEQ/L Anion Gap 8 MEQ/L Estimat Glomerular Filtration Rate 94 ML/MIN Imaging Last 24 hours Impressions Chest X-Ray 10/26/17 0500 Signed Impressions: Service Date/Time: September 03:46 - CONCLUSION: Minimal left basilar density likely atelectasis. Teodoro Mart MD Assessment and Plan Problem List: (1) Chronic kidney disease ICD Codes: N18.9 - Chronic kidney disease, unspecified (2) Dyspnea on exertion ICD Codes: R06.09 - Other forms of dyspnea (3) Multi-vessel coronary artery stenosis ICD Codes: I25.10 - Atherosclerotic heart disease of [place] coronary artery without angina pectoris (4) S/P CABG x 3 ICD Codes: Z95.1 - Presence of aortocoronary bypass graft Assessment and Plan 1) USA/MVCAD s/p CABGx3 POD #1 CEDENO to LAD SVG to OM SVG to Diag 2) EF 50-55% 3) Extubated 4) ASA/Statin BB held 5) Continue to ambulate Grey Gray DO Oct 26, 2017 22:24
[2017-10-27] VITALS (25 sets, daily range): BP systolic 94–113; BP diastolic 50–59; PULSE 73–102; RESP 16–18; TEMP 98–99; O2SAT 94–97
[2017-10-27] MEDS: INSULIN ASPART SUPPLEMENTAL SCALE SQ SCH ×5 (04:00→22:05)
[2017-10-27 06:19] LABS: BICARBONATE 28.4 MEQ/L (21.0-32.0); CALCIUM 7.5 MG/DL (8.5-10.1)
[2017-10-27] MEDS: AMIODARONE 200 MG TAB PO SCH ×2 (06:21→17:45)
[2017-10-27] MEDS: PANTOPRAZOLE SOD 40 MG DELAYED RELEASE TAB PO SCH (06:21)
[2017-10-27] MEDS: RESP: ALBUTEROL 2.5 MG/IPRATROPIUM 0.5 MG NEB (SCH) NEB ×3 (07:49→20:06)
[2017-10-27] MEDS: MAGNESIUM HYDROXIDE SUSP 30 ML CUP PO SCH (08:40)
[2017-10-27] MEDS: POLYETHYLENE GLYCOL 17 GM PKG PO SCH (08:40)
[2017-10-27] MEDS: ASPIRIN 81 MG CHEW TAB PO SCH (08:41)
[2017-10-27] MEDS: MULTIVITAMINS/MINERALS THERAPEUTIC TAB PO SCH (08:41)
[2017-10-27] MEDS: DOCUSATE SODIUM 100 MG CAP PO SCH ×2 (08:41→20:53)
[2017-10-27] MEDS: SODIUM CHLORIDE 0.9% FLUSH 10 ML FLUSH IV FLUSH SCH ×2 (08:45→20:48)
--- NOTE | 2017-10-27 10:59 | PD.CARD.PN ---
Subjective Subjective Remarks Up and ambulating the ruiz multiple times Doing well, no complaints Objective Medications Current Medications Medications (Trade) Dose Ordered Sig/Jillian Route Start Time Stop Time Status Last Admin (Lipitor) 40 mg HS PO 10/23/17 21:00 10/26/17 21:13 (Pill Splitter) 1 ea UNSCH PRN OTHER 10/23/17 13:45 (NS Flush) 2 ml BID IV FLUSH 10/25/17 21:00 10/27/17 08:45 (NS Flush) 2 ml UNSCH PRN IV FLUSH 10/25/17 11:30 (Aspirin Chew) 81 mg DAILY PO 10/26/17 09:00 10/27/17 08:41 (Protonix) 40 mg DAILY@06 PO 10/26/17 06:00 10/27/17 06:21 (Tylenol) 650 mg Q4H PRN PO 10/25/17 11:30 (Tylenol Supp) 650 mg Q4H PRN RECTAL 10/25/17 11:30 (Percocet 5-325 Mg) 1 tab Q3H PRN PO 10/25/17 11:30 (Zofran Inj) 4 mg Q6H PRN IV PUSH 10/25/17 11:30 (D50w (Vial) Inj) 50 ml UNSCH PRN IV PUSH 10/25/17 11:30 (Duoneb Neb) 1 ampule Q2HR NEB PRN NEB 10/25/17 11:30 (Duoneb Neb) 1 ampule Q6HR WHILE AWAKE NEB NEB 10/26/17 14:00 10/28/17 13:59 10/27/17 07:49 (Colace) 100 mg BID PO 10/26/17 09:00 10/27/17 08:41 (Theragran M Tab) 1 tab DAILY PO 10/26/17 09:00 10/27/17 08:41 (Milk Of Magnesia Liq) 30 ml DAILY PO 10/26/17 09:00 10/27/17 08:40 (Dulcolax Supp) 10 mg UNSCH PRN RECTAL 10/26/17 09:00 (Miralax) 17 gm DAILY PO 10/27/17 09:00 10/27/17 08:40 (Senokot) 8.6 mg HS PO 10/26/17 21:00 10/26/17 21:12 (Fleets Enema (Adult)) 118 ml UNSCH PRN RECTAL 10/26/17 09:00 (NovoLOG SUPPLEMENTAL SCALE) 1 02,06,10,14,18,22 SQ 10/26/17 10:00 10/27/17 04:00 (D50w (Vial) Inj) 50 ml UNSCH PRN IV PUSH 10/26/17 09:00 (Glucagon Inj) 1 mg UNSCH PRN OTHER 10/26/17 09:00 (Cordarone) 200 mg Q12H PO 10/27/17 18:00 (Lopressor) 12.5 mg Q12HR PO 10/27/17 21:00 Vital Signs / I&O Vital Signs Date Time Temp Pulse Resp B/P (MAP) Pulse Ox O2 Delivery O2 Flow Rate FiO2 10/27/17 07:52 95 21 10/27/17 06:02 74 10/27/17 05:05 74 10/27/17 04:00 75 10/27/17 03:00 98.3 75 94/50 (65) 94 10/27/17 03:00 78 10/27/17 02:00 73 10/27/17 01:00 76 10/27/17 00:00 76 10/26/17 23:00 97.8 82 132/62 (85) 98 10/26/17 23:00 74 10/26/17 22:00 84 10/26/17 21:00 92 10/26/17 20:30 98 10/26/17 20:00 80 10/26/17 19:00 98.4 77 93/55 (68) 94 10/26/17 19:00 76 10/26/17 18:00 77 10/26/17 17:00 81 10/26/17 16:00 82 10/26/17 15:00 98.2 71 20 94/58 (70) 98 10/26/17 15:00 98 Room Air 10/26/17 15:00 88 10/26/17 14:00 80 10/26/17 13:00 86 10/26/17 12:00 92 10/26/17 11:00 98.1 83 20 126/61 (82) 98 Arterial Line 10/26/17 11:00 98 Room Air 10/26/17 11:00 80 I/O 10/26/17 10/26/17 10/26/17 10/27/17 10/27/17 10/27/17 07:00 15:00 23:00 07:00 15:00 23:00 Intake Total 790 ml 450 ml 720 ml 820 ml Output Total 690 ml 680 ml 565 ml Balance 100 ml 450 ml 40 ml 255 ml Intake Oral 480 ml 720 ml 720 ml IV Total 310 ml 450 ml 100 ml Output Urine Total 560 ml 450 ml 425 ml Chest Tube Drainage Total 130 ml 230 ml 140 ml # Bowel Movements 0 Physical Exam GENERAL: NAD, AAOx3 SKIN: Warm and dry. HEAD: Atraumatic. Normocephalic. EYES: Pupils equal and round. No scleral icterus. No injection or drainage. ENT: No nasal bleeding or discharge. Mucous membranes pink and moist. NECK: Trachea midline. No JVD. CARDIOVASCULAR: Regular rate and rhythm. RESPIRATORY: No accessory muscle use. Clear to auscultation. Breath sounds equal bilaterally. GASTROINTESTINAL: Abdomen soft, non-tender, nondistended. Hepatic and splenic margins not palpable. MUSCULOSKELETAL: Extremities without clubbing, cyanosis, or edema. No obvious deformities. NEUROLOGICAL: Awake and alert. No obvious cranial nerve deficits. Motor grossly within normal limits. Five out of 5 muscle strength in the arms and legs. Normal speech. PSYCHIATRIC: Appropriate mood and affect; insight and judgment normal. Laboratory Laboratory Tests Test 10/27/17 05:15 Blood Urea Nitrogen 22 MG/DL Creatinine 1.00 MG/DL Random Glucose 120 MG/DL Calcium Level 7.5 MG/DL Magnesium Level 2.0 MG/DL Sodium Level 138 MEQ/L Potassium Level 4.4 MEQ/L Chloride Level 105 MEQ/L Carbon Dioxide Level 28.4 MEQ/L Anion Gap 5 MEQ/L Estimat Glomerular Filtration Rate 73 ML/MIN Assessment and Plan Problem List: (1) Chronic kidney disease ICD Codes: N18.9 - Chronic kidney disease, unspecified (2) Dyspnea on exertion ICD Codes: R06.09 - Other forms of dyspnea (3) Multi-vessel coronary artery stenosis ICD Codes: I25.10 - Atherosclerotic heart disease of [place] coronary artery without angina pectoris (4) S/P CABG x 3 ICD Codes: Z95.1 - Presence of aortocoronary bypass graft Assessment and Plan 1) USA/MVCAD s/p CABGx3 POD #2 CEDENO to LAD SVG to OM SVG to Diag 2) EF 50-55% 3) Extubated 4) ASA/Statin BB held 5) Continue to ambulate 6) Chest tubes still in 7) If concerns over the weekend, Dr. Carter will be available Grey Reyes DO Oct 27, 2017 10:59
--- NOTE | 2017-10-27 14:44 | PD.CAR.PN ---
CVT Progress Note Subjective/Hospital Course: 72-year-old male patient of Dr. Luke Augustine, Dr. Sandra Busby, who had been having some chest pain on and off for the last year and a half he recalled , but he described it to Dr. Bubsy as discomfort for the last couple of months, lasting a couple of hours. He said it was hard to describe, but he has been noticing that he has had some intolerance to walking up a flight of stairs. He walks up a flight of stairs 12 flights to get the mail and has to stop after the seventh to catch his breath, which is not normal to him. Denies having any nausea, vomiting, palpitations. No edema. He underwent elective exercise stress test; however, there was a [address] depression that was noted making him a high risk score. So he underwent elective cardiac catheterization today by Dr. Gray, which showed left main disease of 10%. The proximal LAD had 95%. The mid distal LAD 99%. The diagonal had 40%. The circumflex 20, the OM 60 and the RCA 20%. We were consulted to evaluate for coronary artery bypass grafting since the patient has significant LAD disease, PAST MEDICAL HISTORY: Includes chronic kidney disease, stage II, history of kidney stones, colon polyps, prediabetes, hyperlipidemia. ECHO: no valve disease , EF 50% 10/24 on heparin gtt for surgery in am , carotid ok FEV1 3.08 10/25 surgery: CABG x 3, CEDENO to LAD - fair, SVG to OM - good, SVG to D1 - good, L EVH extubated after surgery crystalloid 2600cc, 750cc cell saver, 200cc EBL 10/26 up in chair on nasal cannula continue pulm toileting hold on BB , BP labile and has 1st degree AV block, will monitor hold on diuresis today weight up 2 kg stable to transfer to stepdown 10/27 chest tube drained 140cc/ 12 and additional 150cc this afternoon will keep chest tube in , BP on low side / hold on diuresis on room air, + BM OOB, ambulate Objective: GENERAL: A&O x 3 SKIN: Warm and dry. prevena dressing to chest , incision intact left leg HEAD: Normocephalic. EYES: No scleral icterus. No injection or drainage. NECK: Supple, trachea midline. No JVD or lymphadenopathy. CARDIOVASCULAR: Regular rate and rhythm without murmurs, gallops, or rubs. RESPIRATORY: Breath sounds equal bilaterally. No accessory muscle use. GASTROINTESTINAL: Abdomen soft, non-tender, nondistended. MUSCULOSKELETAL: No cyanosis, or edema. BACK: Nontender without obvious deformity. No CVA tenderness. Vital Signs Date Time Temp Pulse Resp B/P (MAP) Pulse Ox O2 Delivery O2 Flow Rate FiO2 10/27/17 12:00 98.7 90 18 113/59 (77) 96 10/27/17 12:00 90 10/27/17 08:00 98.5 74 18 112/53 (72) 97 10/27/17 08:00 74 10/27/17 07:52 95 21 10/27/17 06:02 74 10/27/17 05:05 74 10/27/17 04:00 75 10/27/17 03:00 98.3 75 94/50 (65) 94 10/27/17 03:00 78 10/27/17 02:00 73 10/27/17 01:00 76 10/27/17 00:00 76 10/26/17 23:00 97.8 82 132/62 (85) 98 10/26/17 23:00 74 10/26/17 22:00 84 10/26/17 21:00 92 10/26/17 20:30 98 10/26/17 20:00 80 10/26/17 19:00 98.4 77 93/55 (68) 94 10/26/17 19:00 76 10/26/17 18:00 77 10/26/17 17:00 81 10/26/17 16:00 82 10/26/17 15:00 98.2 71 20 94/58 (70) 98 10/26/17 15:00 98 Room Air 10/26/17 15:00 88 Labs: Laboratory Tests Test 10/27/17 05:15 Blood Urea Nitrogen 22 MG/DL (7-18) Creatinine 1.00 MG/DL (0.60-1.30) Random Glucose 120 MG/DL (74-106) Calcium Level 7.5 MG/DL (8.5-10.1) Magnesium Level 2.0 MG/DL (1.5-2.5) Sodium Level 138 MEQ/L (136-145) Potassium Level 4.4 MEQ/L (3.5-5.1) Chloride Level 105 MEQ/L (98-107) Carbon Dioxide Level 28.4 MEQ/L (21.0-32.0) Anion Gap 5 MEQ/L (5-15) Estimat Glomerular Filtration Rate 73 ML/MIN (>89) Result Diagram: 10/26/17 0410 10/27/17 0515 Telemetry: NSR (1) Chronic kidney disease Plan: stable creatinine 1.0 (2) Dyspnea on exertion (3) Multi-vessel coronary artery stenosis (4) S/P CABG x 3 Plan: pulm toileting nebs ezpap on statin reduce amio, ASA start low dose BB this evening with parameters OOB ambulate leave chest tubes in CM to eval for [facility] Val Ramsey Oct 27, 2017 14:44
[2017-10-27] MEDS: METOPROLOL TARTRATE 25 MG TAB PO SCH (20:49)
[2017-10-27] MEDS: ATORVASTATIN 40 MG TAB PO SCH (20:49)
[2017-10-27] MEDS: SENNOSIDES 8.6 MG TAB PO SCH (20:53)
[2017-10-28] VITALS (15 sets, daily range): BP systolic 103–106; BP diastolic 59–64; PULSE 74–91; RESP 16; TEMP 97.8–98.3; O2SAT 97–99
[2017-10-28] MEDS: AMIODARONE 200 MG TAB PO SCH (05:48)
[2017-10-28] MEDS: PANTOPRAZOLE SOD 40 MG DELAYED RELEASE TAB PO SCH (05:48)
[2017-10-28] MEDS: INSULIN ASPART SUPPLEMENTAL SCALE SQ SCH (08:00)
[2017-10-28] MEDS: MULTIVITAMINS/MINERALS THERAPEUTIC TAB PO SCH (09:00)
[2017-10-28] MEDS: POLYETHYLENE GLYCOL 17 GM PKG PO SCH (09:00)
[2017-10-28] MEDS: DOCUSATE SODIUM 100 MG CAP PO SCH (09:00)
[2017-10-28] MEDS: MAGNESIUM HYDROXIDE SUSP 30 ML CUP PO SCH (09:00)
[2017-10-28] MEDS: ASPIRIN 81 MG CHEW TAB PO SCH (09:01)
[2017-10-28] MEDS: METOPROLOL TARTRATE 25 MG TAB PO SCH (09:01)
[2017-10-28] MEDS: SODIUM CHLORIDE 0.9% FLUSH 10 ML FLUSH IV FLUSH SCH (09:01)
[2017-10-28] MEDS: RESP: ALBUTEROL 2.5 MG/IPRATROPIUM 0.5 MG NEB (SCH) NEB (09:03)
[2017-10-28] MEDS ORDERED: DOCU1CAP39 PO (10:40)
[2017-10-28] MEDS ORDERED: PANT40TA3 PO (10:40)
[2017-10-28] MEDS ORDERED: OXYC1TAB63 PO (10:40)
[2017-10-28] MEDS ORDERED: METO25TA3 PO (10:40)
[2017-10-28] MEDS ORDERED: AMIO200T PO (10:40)
--- NOTE | 2017-10-28 10:47 | HHI.DS ---
Discharge Summary Admission Date Oct 24, 2017 at 08:44 Discharge Date: Oct 28, 2017 Admitting Diagnosis Multivessel CAD Unstable angina HTN s/p sternotomy for thymectomy (1) Multi-vessel coronary artery stenosis Diagnosis: Principal ICD Codes: I25.10 - Atherosclerotic heart disease of [place] coronary artery without angina pectoris (2) Dyspnea on exertion Diagnosis: Principal ICD Codes: R06.09 - Other forms of dyspnea (3) Chronic kidney disease Diagnosis: Secondary ICD Codes: N18.9 - Chronic kidney disease, unspecified (4) Unstable angina Diagnosis: Principal ICD Codes: I20.0 - Unstable angina Procedures REDO sternotomy for CABG x 3 Left heart cath ECHO Brief History Subjective/Hospital Course: 72-year-old male patient of Dr. Luke Augustine, Dr. Sandra Busby, who had been having some chest pain on and off for the last year and a half he recalled , but he described it to Dr. Busby as discomfort for the last couple of months, lasting a couple of hours. He said it was hard to describe, but he has been noticing that he has had some intolerance to walking up a flight of stairs. He walks up a flight of stairs 12 flights to get the mail and has to stop after the seventh to catch his breath, which is not normal to him. Denies having any nausea, vomiting, palpitations. No edema. He underwent elective exercise stress test; however, there was a [address] depression that was noted making him a high risk score. So he underwent elective cardiac catheterization today by Dr. Gray, which showed left main disease of 10%. The proximal LAD had 95%. The mid distal LAD 99%. The diagonal had 40%. The circumflex 20, the OM 60 and the RCA 20%. We were consulted to evaluate for coronary artery bypass grafting since the patient has significant LAD disease, PAST MEDICAL HISTORY: Includes chronic kidney disease, stage II, history of kidney stones, colon polyps, prediabetes, hyperlipidemia. ECHO: no valve disease , EF 50% Prior sternotomy for thymectomy in 1984 CBC/BMP: 10/26/17 0410 10/27/17 0515 Significant Findings Laboratory Tests Test 10/26/17 04:10 10/27/17 05:15 White Blood Count 14.0 TH/MM3 (4.0-11.0) Red Blood Count 3.32 MIL/MM3 (4.50-5.90) Hemoglobin 10.7 GM/DL (13.0-17.0) Hematocrit 31.9 % (39.0-51.0) Platelet Count 109 TH/MM3 (150-450) Random Glucose 119 MG/DL (74-106) 120 MG/DL (74-106) Calcium Level 8.2 MG/DL (8.5-10.1) 7.5 MG/DL (8.5-10.1) Chloride Level 109 MEQ/L (98-107) Blood Urea Nitrogen 22 MG/DL (7-18) Estimat Glomerular Filtration Rate 73 ML/MIN (>89) Imaging Last Impressions Chest X-Ray 10/26/17 0500 Signed Impressions: Service Date/Time: September 03:46 - CONCLUSION: Minimal left basilar density likely atelectasis. Teodoro Mart MD Lower Extremity Ultrasound 10/23/17 0000 Signed Impressions: Service Date/Time: Monday, October 23, 2017 13:58 - CONCLUSION: Venous mapping study as described. Venkat Roberts MD Chest CT 10/23/17 0000 Signed Impressions: Service Date/Time: Monday, October 23, 2017 15:12 - CONCLUSION: 1. COPD 2. Central airway disease with bronchial wall thickening and mild dilatation. 3. No evidence of acute process or suspicious pulmonary nodules. 4. Cholelithiasis 5. Multiple hepatic cysts Cristobal Mckeon MD Carotid Artery Ultrasound 10/23/17 0000 Signed Impressions: Service Date/Time: Monday, October 23, 2017 13:15 - CONCLUSION: 1. Normal exam. 2. No evidence of significant atherosclerotic vascular disease or hemodynamically significant stenosis. 3. Antegrade flow both vertebral arteries. Cristobal Mckeon MD PE at Discharge chest - CTA COR - RRR ABD - soft, NT, NABS wound - dry and intact Hospital Course 10/24 on heparin gtt for surgery in am , carotid ok FEV1 3.08 10/25 surgery: CABG x 3, CEDENO to LAD - fair, SVG to OM - good, SVG to D1 - good, L EVH extubated after surgery crystalloid 2600cc, 750cc cell saver, 200cc EBL 10/26 up in chair on nasal cannula continue pulm toileting hold on BB , BP labile and has 1st degree AV block, will monitor hold on diuresis today weight up 2 kg stable to transfer to stepdown 10/27 chest tube drained 140cc/ 12 and additional 150cc this afternoon will keep chest tube in , BP on low side / hold on diuresis on room air, + BM OOB, ambulate 10/28/17 Chest tubes removed. Ready for discharge. Pt Condition on Discharge: Good Discharge Disposition: Disch w/ Home Health Serv Discharge Instructions DIET: Follow Instructions for: Heart Healthy Diet Activities you can perform: Weight Bearing as [place], Shower Only-No Bath Activities to avoid: Lifting/Bending, Strenuous Activity, Driving Follow up Referrals: Cardiology, Interventional - 4 Weeks @ [facility] with Sandra Busby MD PCP Follow-up - 2 Weeks with Luke Augustine MD Surgical - 2 Weeks with Tiffani Corbett MD New Orders: X-RAY CHEST PA & LAT - 3 Weeks New Medications: Amiodarone (Amiodarone) 200 Mg Tab 200 MG PO Q12H for Regulate Heart Beat, #28 TAB Docusate Sodium (Dok) 100 Mg Cap 100 MG PO BID for Constipation, #28 CAP Metoprolol Tartrate (Metoprolol Tartrate) 25 Mg Tab 12.5 MG PO Q12HR for Blood Pressure Management, #60 TAB 3 Refills Oxycodone HCl/Acetaminophen (Oxycodone-Acetaminophen 5-325) 5 Mg-325 Mg Tablet 1 TAB PO Q3H PRN for PAIN SCALE 1 TO 5, #30 TAB Pantoprazole (Pantoprazole) 40 Mg Tab 40 MG PO DAILY@06 for Prevent Stress Ulcers, #14 TAB Continued Medications: Amlodipine (Amlodipine) 2.5 Mg Tab 2.5 MG PO DAILY for Blood Pressure Management, #30 TAB 0 Refills Aspirin (Aspirin Low Dose) 81 Mg Chew 81 MG CHEW DAILY, TAB 0 Refills Atorvastatin (Atorvastatin) 40 Mg Tab 40 MG PO HS for Cholesterol Management, #30 TAB 0 Refills Fluticasone Nasal [place] (Flonase Nasal [place]) 50 Mcg/Act [place] 50 MCG EACH NARE BID for Allergies, #1 BOTTLE 0 Refills Loratadine (Claritin) 10 Mg Cap 10 MG PO DAILY for Allergy Management, CAP 0 Refills Multiple Vitamins W/ Minerals (Centrum) 1 Chew 1 TAB CHEW DAILY for Nutritional Supplement, TAB 0 Refills Tiffani Corbett MD Oct 28, 2017 10:47
== END 2017-10-28 12:30 | disposition home health service (06) | DRG 234 ==
LOC: HDOC 07:38 → HDIC 07:39 → HDOC 12:31 → HDIC 12:32 → UNDOADMIN 12:32 → HDIC 16:33 → HCVI 16:33 → HDIC 16:33 → HCVI 10-24 07:30 → HCPC 10-24 07:30 → UNDOADMIN 10-24 08:44 → HCIS 10-25 07:39 → HCVI 10-25 11:58 → HCPC 10-26 10:25
PROVIDERS: ADMIT Nuclear Medicine Nuclear Cardiology; ATTEND Thoracic Surgery (Cardiothoracic Vascular Surgery)
PROC: 4A023N7 Measurement of Cardiac Sampling and Pressure, Left Heart, Percutaneous Approach (ICD-10-PCS; 2017-10-23)
PROC: B2111ZZ Fluoroscopy of Multiple Coronary Arteries using Low Osmolar Contrast (ICD-10-PCS; 2017-10-23)
PROC: 021109W Bypass Coronary Artery, Two Arteries from Aorta with Autologous Venous Tissue, Open Approach (ICD-10-PCS; 2017-10-25)
PROC: 06BQ4ZZ Excision of Left Saphenous Vein, Percutaneous Endoscopic Approach (ICD-10-PCS; 2017-10-25)
PROC: 5A1221Z Performance of Cardiac Output, Continuous (ICD-10-PCS; 2017-10-25)
PROC: 02100Z9 Bypass Coronary Artery, One Artery from Left Internal Mammary, Open Approach (ICD-10-PCS; principal; 2017-10-25 07:07)
DX: I25.110 Atherosclerotic heart disease of native coronary artery with unstable angina pectoris (principal); I12.9 Hypertensive chronic kidney disease with stage 1 through stage 4 chronic kidney disease, or unspecified chronic kidney disease; E78.5 Hyperlipidemia, unspecified; N18.2 Chronic kidney disease, stage 2 (mild); R73.03 Prediabetes; I44.0 Atrioventricular block, first degree
CPT/HCPCS: 71045; 71046; 71250; 80048; 80053; 81001; 82948; 83036; 83735; 85014; 85025; 85027; 85610; 85730; 86850; 86900; 86901; 86920; 87641; 93005; 93306; 93458; 93880; 93970; 93998; 94002; 94010; 94150; 94640; 94664; 94667; 94668; 99152; 99153; C1769; C1893; J0131; J0690; J1644; J1815; J1817; J2150; J2250; J2440; J2720; J2930; J3010; J3370; J3475; J3480; J7120; P9045; P9047; Q9967